=== PATIENT | male | born 1945 | race Caucasian/White ===

== ENCOUNTER 2020-10-04 10:29 | Inpatient (IN) | payer MEDICARE, SELFPAY ==
[2020-10-04] VITALS (12 sets, daily range): BP systolic 105–149; BP diastolic 39–117; PULSE 96–123; RESP 18–28; TEMP 36.6–37.9; O2SAT 89–99; BMI 32.1
--- NOTE | 2020-10-04 10:52 | ECG_ITS ---
Test Reason : WEAKNESS Blood Pressure : / mmHG Vent. Rate : 105 BPM Atrial Rate : 156 BPM P-R Int : 000 ms QRS Dur : 106 ms QT Int : 354 ms P-R-T Axes : 000 008 022 degrees QTc Int : 467 ms Atrial fibrillation with rapid ventricular response with premature ventricular or aberrantly conducted complexes Incomplete right bundle branch block Abnormal ECG No previous ECGs available Referred By: Poppy Adamson Electronically Signed By:JUAN CARLOS GARCIA MD
--- NOTE | 2020-10-04 10:52 | XR_ITS ---
EXAMINATION: XR CHEST CLINICAL INFORMATION: Weakness and shortness of breath. Evaluate for pneumonia. COMPARISON: None TECHNIQUE: Frontal view of the chest was obtained. FINDINGS: The cardiac and mediastinal contours are normal. The lung volumes are low. There is elevation of the right hemidiaphragm. There is airspace disease seen at the right lung base suggestive of pneumonia. The lungs are otherwise clear. There is no pleural effusion or pneumothorax. There are multiple old right-sided rib fractures. XR/XR chest 1V IMPRESSION: Low lung volumes and elevated right hemidiaphragm. Airspace disease at the right lung base suggestive of pneumonia.
--- NOTE | 2020-10-04 10:55 | ED_ITS ---
HPI - URI/Sore Throat General Chief Complaint: Dyspnea Stated Complaint: covid + Time Seen by Provider: 10/04/20 10:29 Source: patient Mode of arrival: ambulatory Limitations: no limitations History of Present Illness HPI Narrative: 75-year-old male with a past medical history of AFib on anticoagulation, high cholesterol here with shortness of breath and cough. The patient tells me that he has been sick with a cough for 1 month. He has had multiple exposures to COVID at work. He was tested this morning and was positive. He tells me he has had some shortness of breath over the last 24 hours which is worsened with exertion. No chest pain, leg swelling or pain. Tactile temps at home. MD elicited complaint: fever and cough Onset (ago): week(s) Consistency: intermittent Severity: mild Able to tolerate fluids by mouth: Yes Exacerbating factors: nothing Relieving factors: nothing Context: sick contacts Associated symptoms: fever, cough and shortness of breath Treatments prior to arrival: none Related Data Home Medications Medication Instructions Recorded Confirmed apixaban [Eliquis] 1 tab PO BID 10/04/20 10/04/20 metoprolol succinate 1 tab PO BEDTIME 10/04/20 10/04/20 simvastatin 1 tab PO DAILY 10/04/20 10/04/20 Allergies Allergy/AdvReac Type Severity Reaction Status Date / Time No Known Allergies Allergy Verified 10/04/20 11:40 Review of Systems Review of Systems: Yes all other systems are reviewed and are negative Constitutional: Constitutional: Reports no additional constitutional complaints, Denies body ache(s), Denies chills, Reports fever(s), Denies headache(s) and Denies weakness Eyes: Eyes: Reports no additional eye complaints and Denies change in vision ENT: Reports system reviewed and no additional complaints, except as documented, Denies dizziness, Denies headache(s), Denies nasal congestion, Denies nasal discharge and Denies neck pain Cardiovascular: Cardiovascular: Reports no additional cardiovascular complaints, Denies chest pain, Denies leg edema and Reports dyspnea Respiratory: Respiratory: Reports no additional respiratory complaints, Reports cough and Reports dyspnea Gastrointestinal: Gastrointestinal: Reports no additional gastrointestinal complaints, Denies abdominal pain, Denies diarrhea, Denies nausea and Denies vomiting Genitourinary: Genitourinary: Denies urinary incontinence Musculoskeletal: Musculoskeletal: Reports no additional musculoskeletal complaints, Denies back pain, Denies arthralgias, Denies joint swelling, Denies neck pain, Denies numbness and Denies tingling Integumentary/Breasts: Skin/Breast: Reports system reviewed and no additional complaints, except as docu and Denies rash Neurologic: Reports system reviewed and no additional complaints, except as documented, Denies Abnormal speech present, Denies dizziness, Denies headache (s), Denies numbness, Denies tingling and Denies weakness PMF Past Medical History Attestation statement: The following information was validated with the patient. Source: old records reviewed and nursing notes reviewed Medical History Afib Elevated cholesterol Social History Social History Advance Directives: No Advance Directives Information Provided: No Physical Exam Vital Signs: Vital Signs: Last Vital Signs Temp 100.0 F 10/04/20 14:01 Pulse 123 H 10/04/20 14:01 Resp 28 H 10/04/20 14:01 BP 123/64 10/04/20 14:01 Pulse Ox 92 10/04/20 14:01 Body Mass Index 32.1 Const: General: cooperative, healthy appearing, comfortable and no acute dis tress Orientation/consciousness: patient oriented x3 Limitations: no limitations HENMT: Head: Yes normal to inspection Ears: hearing grossly normal bilaterally General nose exam: Normal external nose present Face and sinus: Yes normal facial exam Mouth: Normal oral and palatal mucosa present Throat: Yes posterior oropharynx normal Eyes: General: appearance normal, both eyes and all related structures Pupils: Equal, round and reactive pupils present Neck: Neck: Yes normal visual inspection Chest: Chest palpation & inspection: normal inspection of the chest Resp: Effort & Inspection: normal respiratory effort Auscultation: clear to auscultation bilaterally Cardio: Rate: regular rate Rhythm: regular rhythm Peripheral pulses: Peripheral pulses 2+ throughout GI: Inspection: Yes normal to inspection Palpation (GI): Soft to palpation and nontender Auscultation: normal bowel sounds Back/Spine/Pelvis: Thoracic/Lumbar Spine: thoracic and lumbar spine normal to inspection Skin: General skin exam: no rashes or lesions noted Neuro: General: patient oriented x3, no focal motor deficits and normal sensation to monofilament Cranial nerves: Yes Equal, round and reactive pupils present Cognition (Neuro): normal cognition Speech: No Abnormal speech present Gait exam (Neuro): Normal gait present Motor exam (neuro): 5/5 motor strength present throughout Extrem: General: Yes normal to inspection Course Course Course Narrative: 75-year-old male who has known COVID positive here with cough and shortness of breath. On arrival the patient is well-appearing. Speaking full sentences in no apparent distress. Mild tachycardia noted. Low- grade temp on arrival with room air saturation 89%. Will check labs, chest x- ray, EKG 1150-Blood pressure 105/39. Pt is obese. Used IBW 81kg used. Total 2454ml. Chest x-ray shows a ? right lower lobe infiltrate @ 1140. At that time infection was suspected. Antibiotics ordered. 1405- Initial troponin indeterminate. Repeat is pending. EKG shows AFib with a rate of 105 with no ischemic changes. No chest pain. Likely demand ischemia from hypoxia at home. All other labs reviewed unremarkable. Discussed with hospitalist [place] who accepted admission. Requested d dimer and medicine will follow. 1545- D-dimer is elevated however less likely PE as patient is anticoagulated a nd has been compliant with his medication. No clinical signs or symptoms concerning for PE. Discussed with hospitalist and they will trend D-dimer. MDM - URI/Sore Throat Medical Records Attestation: I reviewed the patient's medical records. Lab Data Attestation: I reviewed the patient's lab results. Result diagrams: 10/04/20 11:34 10/04/20 12:44 Labs: Lab Results 10/04/20 10/04/20 10/04/20 Range/Units 11:34 11:34 11:34 WBC 9.8 (4.8-10.8) X10*3/uL RBC 4.95 (4.60-5.80) X10*6/uL Hgb 13.2 L (14.0-18.0) g/dl Hct 40.5 L (42-52) % MCV 81.8 (80-98) fL MCH 26.7 L (27.0-33.0) pg MCHC 32.6 (31.0-36.0) g/dl RDW 15.3 (11.0-16.0) % Plt Count 165 (160-400) X10*3/uL MPV Not Reportable Immature Gran % (Auto) 0.4 (0.0-0.4) % Neut % (Auto) 88.8 H (45-73) % Lymph % (Auto) 5.7 L (20-40) % [place] % (Auto) 4.9 (2-11) % Eos % (Auto) 0.0 (0-4) % Baso % (Auto) 0.2 (0-2) % Lymph # (Auto) 0.6 L (1.2-4.9) X10*3/uL [place] # (Auto) 0.5 (0.1-1.2) X10*3/uL Eos # (Auto) 0.0 (0.0-0.4) X10*3/uL Baso # (Auto) 0.0 (0.0-0.2) X10*3/uL Abs Immat Gran (auto) 0.04 H (0.00-0.03) X10*3/uL Absolute Neuts (auto) 8.7 H (2.0-8.3) X10*3/uL Absolute Nucleated RBC 0.000 (0.0-0.012) X10*3/uL Nucleated RBC % (auto) 0.0 (0.0-0.2) /100WBC Smear Tech's Comments VERIFIED PT Cancelled INR Cancelled D-Dimer NG/ML Sodium Cancelled Potassium Cancelled Chloride Cancelled Carbon Dioxide Cancelled Anion Gap Cancelled BUN Cancelled Creatinine Cancelled Estim Creat Clear Calc Cancelled Estimated GFR Cancelled Random Glucose Cancelled Lactic Acid (0.5-2.0) mmol/L Calcium Cancelled Magnesium Cancelled Ferritin Total Bilirubin Cancelled Direct Bilirubin Cancelled AST Cancelled ALT Cancelled Alkaline Phosphatase Cancelled Lactate Dehydrogenase Troponin I High Sens (<3.5-35.0) ng/L Total Protein Cancelled Albumin Cancelled Procalcitonin 10/04/20 10/04/20 10/04/20 Range/Units 11:34 11:34 11:34 WBC (4.8-10.8) X10*3/uL RBC (4.60-5.80) X10*6/uL Hgb (14.0-18.0) g/dl Hct (42-52) % MCV (80-98) fL MCH (27.0-33.0) pg MCHC (31.0-36.0) g/dl RDW (11.0-16.0) % Plt Count (160-400) X10*3/uL MPV Immature Gran % (Auto) (0.0-0.4) % Neut % (Auto) (45-73) % Lymph % (Auto) (20-40) % [place] % (Auto) (2-11) % Eos % (Auto) (0-4) % Baso % (Auto) (0-2) % Lymph # (Auto) (1.2-4.9) X10*3/uL [place] # (Auto) (0.1-1.2) X10*3/uL Eos # (Auto) (0.0-0.4) X10*3/uL Baso # (Auto) (0.0-0.2) X10*3/uL Abs Immat Gran (auto) (0.00-0.03) X10*3/uL Absolute Neuts (auto) (2.0-8.3) X10*3/uL Absolute Nucleated RBC (0.0-0.012) X10*3/uL Nucleated RBC % (auto) (0.0-0.2) /100WBC Smear Tech's Comments PT INR D-Dimer NG/ML Sodium Potassium Chloride Carbon Dioxide Anion Gap BUN Creatinine Estim Creat Clear Calc Estimated GFR Random Glucose Lactic Acid 1.5 (0.5-2.0) mmol/L Calcium Magnesium Ferritin Cancelled Total Bilirubin Direct Bilirubin AST ALT Alkaline Phosphatase Lactate Dehydrogenase Cancelled Troponin I High Sens 14.1 (<3.5-35.0) ng/L Total Protein Albumin Procalcitonin 10/04/20 10/04/20 10/04/20 Range/Units 11:34 12:44 12:44 WBC (4.8-10.8) X10*3/uL RBC (4.60-5.80) X10*6/uL Hgb (14.0-18.0) g/dl Hct (42-52) % MCV (80-98) fL MCH (27.0-33.0) pg MCHC (31.0-36.0) g/dl RDW (11.0-16.0) % Plt Count (160-400) X10*3/uL MPV Immature Gran % (Auto) (0.0-0.4) % Neut % (Auto) (45-73) % Lymph % (Auto) (20-40) % [place] % (Auto) (2-11) % Eos % (Auto) (0-4) % Baso % (Auto) (0-2) % Lymph # (Auto) (1.2-4.9) X10*3/uL [place] # (Auto) (0.1-1.2) X10*3/uL Eos # (Auto) (0.0-0.4) X10*3/uL Baso # (Auto) (0.0-0.2) X10*3/uL Abs Immat Gran (auto) (0.00-0.03) X10*3/uL Absolute Neuts (auto) (2.0-8.3) X10*3/uL Absolute Nucleated RBC (0.0-0.012) X10*3/uL Nucleated RBC % (auto) (0.0-0.2) /100WBC Smear Tech's Comments PT 20.7 H INR 1.7 H D-Dimer 780 NG/ML Sodium 131 L Potassium 3.5 Chloride 97 Carbon Dioxide 25 Anion Gap 13 BUN 15 Creatinine 0.76 Estim Creat Clear Calc 112.4 Estimated GFR > 60 Random Glucose 123 H Lactic Acid (0.5-2.0) mmol/L Calcium 7.7 L Magnesium 2.1 Ferritin 764 H Total Bilirubin 0.8 Direct Bilirubin 0.5 AST 60 H ALT 48 H Alkaline Phosphatase 48 Lactate Dehydrogenase 417 H Troponin I High Sens (<3.5-35.0) ng/L Total Protein 6.2 L Albumin 3.3 L Procalcitonin Cancelled 10/04/20 Range/Units 12:44 WBC (4.8-10.8) X10*3/uL RBC (4.60-5.80) X10*6/uL Hgb (14.0-18.0) g/dl Hct (42-52) % MCV (80-98) fL MCH (27.0-33.0) pg MCHC (31.0-36.0) g/dl RDW (11.0-16.0) % Plt Count (160-400) X10*3/uL MPV Immature Gran % (Auto) (0.0-0.4) % Neut % (Auto) (45-73) % Lymph % (Auto) (20-40) % [place] % (Auto) (2-11) % Eos % (Auto) (0-4) % Baso % (Auto) (0-2) % Lymph # (Auto) (1.2-4.9) X10*3/uL [place] # (Auto) (0.1-1.2) X10*3/uL Eos # (Auto) (0.0-0.4) X10*3/uL Baso # (Auto) (0.0-0.2) X10*3/uL Abs Immat Gran (auto) (0.00-0.03) X10*3/uL Absolute Neuts (auto) (2.0-8.3) X10*3/uL Absolute Nucleated RBC (0.0-0.012) X10*3/uL Nucleated RBC % (auto) (0.0-0.2) /100WBC Smear Tech's Comments PT INR D-Dimer NG/ML Sodium Potassium Chloride Carbon Dioxide Anion Gap BUN Creatinine Estim Creat Clear Calc Estimated GFR Random Glucose Lactic Acid (0.5-2.0) mmol/L Calcium Magnesium Ferritin Total Bilirubin Direct Bilirubin AST ALT Alkaline Phosphatase Lactate Dehydrogenase Troponin I High Sens (<3.5-35.0) ng/L Total Protein Albumin Procalcitonin 0.31 Imaging Data Chest x-ray: Attestation: I personally reviewed and interpreted this imaging study as follows: Radiologist's impression: EXAMINATION: XR CHEST CLINICAL INFORMATION: Weakness and shortness of breath. Evaluate for pneumonia. COMPARISON: None TECHNIQUE: Frontal view of the chest was obtained. FINDINGS: The cardiac and mediastinal contours are normal. The lung volumes are low. There is elevation of the right hemidiaphragm. There is airspace disease seen at the right lung base suggestive of pneumonia. The lungs are otherwise clear. There is no pleural effusion or pneumothorax. There are multiple old right-sided rib fractures. XR/XR chest 1V IMPRESSION: Low lung volumes and elevated right hemidiaphragm. Airspace disease at the right lung base suggestive of pneumonia. ECG Data Attestation: I personally reviewed and interpreted this ECG as follows: ECG interpretation date: 10/04/20 ECG interpretation time: 12:27 Interpretation: AFib with RVR with rate 105, normal QRS, normal QT, normal ST segment Discharge Plan Discharge Clinical Impression: COVID-19, Pneumonia, Hypoxia Patient Disposition: Admitted As Inpatient Prescriptions: No Action simvastatin 20 mg tablet 1 tab PO DAILY RF: 0 metoprolol succinate 25 mg tablet extended release 24 hr 1 tab PO BEDTIME RF: 0 Eliquis 5 mg tablet 1 tab PO BID RF: 0
[2020-10-04] MEDS: Acetaminophen 325 MG TABLET 650 MG PO (11:28)
[2020-10-04 11:47] LABS: Basophils Percent Auto 0.2 % (0-2); Hematocrit 40.5 % (42-52); MANUAL DIFF FLAG SCAN; PLT CLUMP 1; Red Cell Distribution Width 15.3 % (11.0-16.0); SCAN SMEAR FLAG 1
[2020-10-04 11:49] LABS: Hemoglobin 13.2 g/dl (14.0-18.0); Imm Gran Abs Auto 0.04 X10*3/uL (0.00-0.03); Imm Gran Pct Auto 0.4 % (0.0-0.4); Lymphocytes Absolute Auto 0.6 X10*3/uL (1.2-4.9); Lymphocytes Percent Auto 5.7 % (20-40); Mean Corpuscular HGB Conc 32.6 g/dl (31.0-36.0); Mean Corpuscular Hemoglobin 26.7 pg (27.0-33.0); Mean Corpuscular Volume 81.8 fL (80-98); Monocytes Absolute Auto 0.5 X10*3/uL (0.1-1.2); Monocytes Percent Auto 4.9 % (2-11); Neutrophils Absolute Auto 8.7 X10*3/uL (2.0-8.3); Neutrophils Percent Auto 88.8 % (45-73); Red Blood Count 4.95 X10*6/uL (4.60-5.80); White Blood Count 9.8 X10*3/uL (4.8-10.8)
[2020-10-04] MEDS: cefTRIAXone sodium 1 GM in 0.9 % Sodium Chloride 50 ML IV (11:49)
[2020-10-04] MEDS: 0.9 % Sodium Chloride 1,000 ML 999 ML IV (11:51)
--- NOTE | 2020-10-04 11:51 | PC.NURSE ---
Multiple sticks for labs and IV. pt is tachipnic at rest in bed. spking full sentences and skin pwd. slight cough noted. non productive. is aware of plan of care including admission.
[2020-10-04 12:08] LABS: Lactic Acid 1.5 mmol/L (0.5-2.0)
[2020-10-04 12:15] LABS: Platelet Count 165 X10*3/uL (160-400)
[2020-10-04 12:16] LABS: SLIDE REVIEW VERIFIED
[2020-10-04 12:20] LABS: Troponin-I High Sensitivity 14.1 ng/L (<3.5-35.0)
--- NOTE | 2020-10-04 12:28 | PC.NURSE ---
REPOSITIONED PT WAS INCONTINENT OF URINE AND SMALL AMOUNT OF SOFT STOOL
[2020-10-04] MEDS: Azithromycin 500 MG in 0.9 % Sodium Chloride 250 ML 125 MG IV (12:37)
[2020-10-04 13:32] LABS: INTERNATIONAL NORM RATIO 1.7 (0.9-1.1); Prothrombin Time 20.7 SEC (10.8-13.0)
[2020-10-04 13:49] LABS: Alanine Aminotransferase 48 U/L (0-40); Albumin Level 3.3 g/dL (3.5-5.0); Alkaline Phosphatase 48 U/L (39-117); Anion Gap 13 (12-20); Aspartate Amino Transferase 60 U/L (5-37); Bilirubin Direct 0.5 mg/dL (0.0-0.5); Bilirubin Total 0.8 mg/dL (0.0-1.0); Blood Urea Nitrogen 15 mg/dL (9-16); Calcium 7.7 mg/dL (8.4-10.2); Carbon Dioxide 25 mmol/L (22-29); Chloride 97 mmol/L (96-108); Creatinine Clr Calc Pharmacy 112.4; Estimated Glomerular Filt Rate > 60; Glucose Random 123 mg/dL (60-115); Lactate Dehydrogenase 417 U/L (118-273); Magnesium 2.1 mg/dL (1.6-2.6); Potassium 3.5 mmol/l (3.3-5.1); Sodium 131 mmol/L (135-145); Total Protein 6.2 g/dL (6.5-8.0)
--- NOTE | 2020-10-04 13:55 | PC.NURSE ---
Pt was slightly diaphoretic but resolved. when pt moved iv was dislodged and moderate amount of meds lost into linnen. up marta br, slow d/t knee pain but no SOB. room air is 87 when back in bed. o2 replaced.
[2020-10-04 14:08] LABS: Procalcitonin 0.31 ng/mL
[2020-10-04 14:11] LABS: Ferritin 764 ng/mL (20-250)
[2020-10-04 14:36] LABS: D Dimer 780 NG/ML
--- NOTE | 2020-10-04 17:27 | PC.NURSE ---
PENDING REPORT TO FLOOR
--- NOTE | 2020-10-04 17:43 | PC.NURSE ---
report given at this time.
--- NOTE | 2020-10-04 17:54 | HP_ITS ---
DATE OF SERVICE: 10/04/2020 PRIMARY CARE PROVIDER: Not listed. CHIEF COMPLAINT: Shortness of breath. HISTORY OF PRESENT ILLNESS: A 75-year-old man presenting from home with increased shortness of breath and cough with green sputum. He reports that he has been feeling this way for over the last month. He did have exposure to COVID at work. He went to an urgent care clinic with his daughter and they both tested positive. He was told to come to the ER if his symptoms worsened. He reported fever, chills, shortness of breath. He denied chest pain, nausea, vomiting, or diarrhea. Upon initial evaluation in the ER, he had an oxygen saturation of 89% on room air. He did have a low-grade fever of 100.2, heart rate 123, respiratory rate 28. Ferritin 264, sodium 131, LDH 417, procalcitonin 0.31. Chest x-ray showed low lung volumes with elevated right hemidiaphragm, airspace disease at the right lung base suggestive of pneumonia. He was given a dose of ceftriaxone, azithromycin, and 1 L of IV fluid. He will be admitted for further management and treatment of COVID-19 pneumonia. PAST MEDICAL HISTORY: 1. Anticoagulation. 2. Hyperlipidemia. PAST SURGICAL HISTORY: None reported. FAMILY HISTORY: Denies any cardiac disease. SOCIAL HISTORY: Denies any alcohol, tobacco, illicit drug use. Lives with his daughter. Remains fairly active. LABORATORY DATA: WBC 9.8, hemoglobin 13.2, hematocrit 40.5, platelets 165. Sodium is 131, potassium is 3.5, chloride is 97, bicarbonate is 25, BUN is 15, creatinine 0.76, glucose 123, ferritin 764, AST 60, ALT is 48, LDH is 417. Procalcitonin 0.31. Troponin 14.1. REVIEW OF SYSTEMS: CONSTITUTIONAL: Reports fever and chills. RESPIRATORY: See HPI. CARDIOVASCULAR: Denies any chest pain, orthopnea, PND, or edema. GASTROINTESTINAL: Denies dysphagia, abdominal pain, nausea, vomiting, or diarrhea. GENITOURINARY: Denies any dysuria, frequency, or hematuria. MUSCULOSKELETAL: Denies joint pain or swelling. NEUROPSYCH: Denies any weakness or seizures. All other systems are reviewed and are negative. PHYSICAL EXAMINATION: CONSTITUTIONAL: Resting in bed. Appears in no acute distress. VITAL SIGNS: 123/64, 123, 28, 100.0, 92% on 2 L. SKIN: Intact without rash or open sores. HEENT: Head is normocephalic, atraumatic. Eyes, pupils are PERRLA. Sclerae anicteric. EOMs are intact and moist. NECK: Supple. No lymphadenopathy. No JVD noted. CHEST: Normal lung expansion. HEART: Irregularly irregular with rapid ventricular response. NEURO: The patient is alert and oriented x3. Cranial nerves II through XII grossly intact without focal deficits. ASSESSMENT AND PLAN: A 75-year-old man who is being admitted with COVID pneumonia. 1. COVID pneumonia. We will treat with Rocephin, azithromycin, Decadron, ID consult, isolation, continue supplemental oxygen as needed. 2. Atrial fibrillation with rapid ventricular response. Monitor on telemetry. Consider starting Cardizem drip if the patient's heart rate continues to be elevated, the patient anticoagulated on Eliquis. Continue metoprolol. 3. Acute hypoxic respiratory failure. Oxygen saturation 89% on room air. Secondary to COVID pneumonia. We will treat as above. Continue supplemental oxygen. 4. Deep vein thrombosis prophylaxis with Eliquis. 5. Case discussed with Dr. Hernandez. 6. Full code. STEPHANE Whitley MD JR/MODL / [id number] MTDD
--- NOTE | 2020-10-04 18:15 | PM.EVENT ---
Event Note Date of Service: 10/05/20 Event Note: This patient is seen and examined with APC. Patient came with shortness of breath found to have acute rest hypoxemic respiratory failure secondary to COVID. Lab imaging, EKG reviewed. Found to have mildly elevated LFTs and also found to have in AFib with RVR physical exam: Cvs: irregular rythem, [id number] , no murmur res: Breath sound diminished does bases, no rales or wheezing abd: no rebound or guarding ,nt, bs present. ext pulses present , no cyanosis neuro: axo3 , nonfocal. Physical exam and assessment and plan coordinated in APCs note, Agree with the plan in addition: We will add COVID labs for morning including ferritin, D-dimer, CRP Continue IV antibiotic, Pulmonary consult and ID evaluation for further need of question remdesivir.
[2020-10-04] MEDS: dexAMETHasone 6 MG TABLET PO (18:18)
[2020-10-04] MEDS: 0.9 % Sodium Chloride Flush 3 ML SYRINGE IVFLUSH (18:18)
[2020-10-04] MEDS: dilTIAZem HCL 125 MG in 0.9 % Sodium Chloride 100 ML IVCONT (19:27)
[2020-10-04] MEDS: Metoprolol Succinate ER 25 MG TAB.ER.24H PO (22:18)
[2020-10-04] MEDS: Apixaban 5 MG TABLET PO (22:19)
[2020-10-05] VITALS (11 sets, daily range): BP systolic 117–143; BP diastolic 59–95; PULSE 89–112; RESP 18–20; TEMP 36–36.7; O2SAT 90–96; BMI 32.1
--- NOTE | 2020-10-05 | XR_ITS ---
EXAMINATION: XR CHEST CLINICAL INFORMATION: Shortness of breath, airspace disease right base on prior study. COMPARISON: Chest radiographs 10/04/2020 TECHNIQUE: Portable upright AP view of the chest was obtained. FINDINGS: There are low lung volumes again noted. There are no patchy bilateral airspace opacities predominantly mid and lower zones with apical sparing. No gross effusion. Heart is within normal size. Visualized vascularity unremarkable. Bony structures are stable. Multiple old right rib fractures. XR/XR chest 1V IMPRESSION: Bilateral patchy airspace opacities representing change from prior study 10/04/2020. Findings may related to multifocal pneumonia in the appropriate clinical setting.
[2020-10-05] MEDS: 0.9 % Sodium Chloride Flush 3 ML SYRINGE IVFLUSH ×3 (00:55→23:22)
[2020-10-05 06:54] LABS: Basophils Percent Auto 0.1 % (0-2); Hematocrit 41.3 % (42-52); Hemoglobin 13.5 g/dl (14.0-18.0); Imm Gran Pct Auto 0.6 % (0.0-0.4); Lymphocytes Absolute Auto 0.4 X10*3/uL (1.2-4.9); Lymphocytes Percent Auto 2.6 % (20-40); MANUAL DIFF FLAG SCAN; Mean Corpuscular HGB Conc 32.7 g/dl (31.0-36.0); Mean Corpuscular Hemoglobin 27.1 pg (27.0-33.0); Mean Corpuscular Volume 82.8 fL (80-98); Mean Platelet Volume 10.5 fL (9.4-12.4); Monocytes Absolute Auto 0.4 X10*3/uL (0.1-1.2); Monocytes Percent Auto 2.4 % (2-11); Neutrophils Absolute Auto 15.8 X10*3/uL (2.0-8.3); Neutrophils Percent Auto 94.3 % (45-73); Platelet Count 222 X10*3/uL (160-400); Red Blood Count 4.99 X10*6/uL (4.60-5.80); Red Cell Distribution Width 15.3 % (11.0-16.0); SCAN SMEAR FLAG 1; White Blood Count 16.8 X10*3/uL (4.8-10.8)
[2020-10-05 07:27] LABS: Anion Gap 18 (12-20); Blood Urea Nitrogen 14 mg/dL (9-16); Calcium 8.3 mg/dL (8.4-10.2); Carbon Dioxide 24 mmol/L (22-29); Chloride 98 mmol/L (96-108); Creatinine Clr Calc Pharmacy 113.9; Estimated Glomerular Filt Rate > 60; Glucose Random 149 mg/dL (60-115); Potassium 3.7 mmol/l (3.3-5.1); Sodium 136 mmol/L (135-145)
[2020-10-05 08:09] LABS: SLIDE REVIEW VERIFIED
[2020-10-05] MEDS: Apixaban 5 MG TABLET PO ×2 (08:11→20:21)
[2020-10-05] MEDS: guaiFENesin 100 MG/5 ML LIQUID PO ×2 (08:11→18:31)
[2020-10-05] MEDS: dexAMETHasone 6 MG TABLET PO (08:11)
[2020-10-05] MEDS: Atorvastatin Calcium 10 MG TABLET PO (08:11)
--- NOTE | 2020-10-05 09:09 | MHC.CM.PN ---
pt lives c his and daughter in their home. he reports he is independent in his care. he works a job and drives a car. pt will have his daughter provide transportation at dc. he denies the need for vna at dc at this time. dc plan is home no svcs. cm to cont. to follow.
--- NOTE | 2020-10-05 09:49 | P.CDIC_ITS ---
CDI Concurrent Query Service Date: 10/05/20 Documentation Clarification: Please clarify if you are treating a proba ble/suspected/likely or confirmed: Sepsis due to Covid-19/pneumonia with acute respiratory failure w hypoxia Covid-19/pneumonia with acute hypoxic respiratory failure-yes Please specify if known Provider Response: Other Other Diagnosis: acute hypoxemic respiratory failure/covid PLEASE DO NOT DELETE/MODIFY EXISTING CONTENT Additional information is needed in order to code to the highest accuracy and appropriate Severity of Illness (SOI). Please clarify the information noted below in your progress notes and discharge summary. Risk Factors/Clinical Indicators/Treatments Shortness of breath, fever at home, chills, hypoxia w O2 sat 89% HR 123 RR 28 Temp 100.2. CXR airspace disease at right lung base suggestive of pneumonia. Rocephin, Azithromycin, Decradon, ID consult, isolation, oxygen as needed. Acute hypoxic respiratory failure secondary to Covid-19 pneumonia. CDS: Beth Cassidy CCS, CDIS Contact Number: [phone] Please Review the information above and exercise your independent professional judgment in responding to the query. If you concur, pleas document in the PROGRESS NOTES and DISCHARGE SUMMARY. If you do not agree with the query, please document in the query above. THIS QUERY IS PART OF THE PERMANENT MEDICAL RECORD
--- NOTE | 2020-10-05 09:55 | PC.NURSE ---
Pt O2 88% on 5L O2 via NC, O2 increased to 6L via NC and O2 sat at 90%.
--- NOTE | 2020-10-05 09:56 | PC.NURSE ---
Pt HR between 92-102 Apical on 12.5 mg Cardizem drip. MD aware and ordered this RN to decrease the rate from 12.5 mg to 7.5 mg . Pt BP 142/73 HR 103 . Will continue to monitor as adjust per MD orders. Pt asymptomatic .
[2020-10-05 11:04] LABS: Alanine Aminotransferase 58 U/L (0-40); Albumin Level 3.8 g/dL (3.5-5.0); Alkaline Phosphatase 61 U/L (39-117); Aspartate Amino Transferase 66 U/L (5-37); Bilirubin Direct 0.5 mg/dL (0.0-0.5); Bilirubin Total 0.8 mg/dL (0.0-1.0); Total Protein 7.1 g/dL (6.5-8.0)
--- NOTE | 2020-10-05 11:46 | PC.NURSE ---
1140 Cardizem drip titrated down from 7.5mg to 2.5mg . Pt HR ranging from 90-105. MD aware, will continue to monitor.
[2020-10-05] MEDS: dilTIAZem HCL 125 MG in 0.9 % Sodium Chloride 100 ML IVCONT (12:17)
[2020-10-05] MEDS: cefTRIAXone sodium 1 GM in 0.9 % Sodium Chloride 50 ML IV (12:29)
[2020-10-05 12:44] LABS: Pt Ventilation O2% 6 L
[2020-10-05 13:00] LABS: ABG PCO2 35 mmhg (32-45); PO2 ABG 58 mmhg (83-108); pH ABG 7.45 (7.35-7.45)
[2020-10-05 13:01] LABS: Base Excess ABG 0.2; HCO3 ABG 24 mmol/l (22-26); Oxygen Saturation ABG 91.6 %
[2020-10-05] MEDS: Azithromycin 500 MG in 0.9 % Sodium Chloride 250 ML 125 MG IV (13:41)
[2020-10-05 14:54] LABS: C Reactive Protein 27.42 mg/dL (< or = 0.50); Magnesium 2.4 mg/dL (1.6-2.6)
[2020-10-05 15:32] LABS: D Dimer 936 NG/ML
[2020-10-05 15:59] LABS: Ferritin 2700 ng/mL (20-250)
[2020-10-05 16:41] LABS: SARS COV2 IgG Positive (Negative)
[2020-10-05] MEDS: Metoprolol Succinate ER 25 MG TAB.ER.24H PO (20:20)
[2020-10-06] VITALS (7 sets, daily range): BP systolic 125–140; BP diastolic 61–74; PULSE 95–103; RESP 18–20; TEMP 36.1–36.8; O2SAT 90
[2020-10-06] MEDS: guaiFENesin 100 MG/5 ML LIQUID PO ×2 (05:12→20:30)
[2020-10-06 06:25] LABS: Hematocrit 38.4 % (42-52); Hemoglobin 12.5 g/dl (14.0-18.0); Mean Corpuscular HGB Conc 32.6 g/dl (31.0-36.0); Mean Corpuscular Hemoglobin 26.7 pg (27.0-33.0); Mean Corpuscular Volume 82.1 fL (80-98); Mean Platelet Volume 10.5 fL (9.4-12.4); Platelet Count 200 X10*3/uL (160-400); Red Blood Count 4.68 X10*6/uL (4.60-5.80); Red Cell Distribution Width 15.7 % (11.0-16.0); White Blood Count 14.7 X10*3/uL (4.8-10.8)
[2020-10-06] MEDS: dilTIAZem HCL 125 MG in 0.9 % Sodium Chloride 100 ML 12.5 MG IVCONT (06:42)
[2020-10-06 06:57] LABS: Anion Gap 13 (12-20); Blood Urea Nitrogen 17 mg/dL (9-16); C Reactive Protein 24.34 mg/dL (< or = 0.50); Calcium 8.4 mg/dL (8.4-10.2); Carbon Dioxide 27 mmol/L (22-29); Chloride 98 mmol/L (96-108); Creatinine Clr Calc Pharmacy 115.5; Estimated Glomerular Filt Rate > 60; Glucose Random 172 mg/dL (60-115); Potassium 3.7 mmol/l (3.3-5.1); Sodium 134 mmol/L (135-145)
[2020-10-06] MEDS: dexAMETHasone 6 MG TABLET PO (09:08)
[2020-10-06] MEDS: 0.9 % Sodium Chloride Flush 3 ML SYRINGE IVFLUSH ×2 (09:08→22:18)
[2020-10-06] MEDS: Apixaban 5 MG TABLET PO ×2 (09:08→20:23)
[2020-10-06] MEDS: Atorvastatin Calcium 10 MG TABLET PO (09:08)
[2020-10-06] MEDS: Doxycycline Hyclate 100 MG in 0.9 % Sodium Chloride 250 ML 166.67 MG IV (10:49)
[2020-10-06] MEDS: cefTRIAXone sodium 1 GM in 0.9 % Sodium Chloride 50 ML IV (12:38)
--- NOTE | 2020-10-06 16:44 | PC.NURSE ---
Pt was on cardizem gtt. HR 100-110's at beginning of shift. Hr now in the 90's occasionally into low 100's. Cardizem gtt stopped per MD order, continue home lopressor dose. Pt has no c/o chest pain or palpitations. Pt complaind of some SOB, rr 20, O2 90% on5L, and course crackles bilateral bases. MD aware, will continue to monitor
--- NOTE | 2020-10-06 16:47 | HO.PM.IMPN ---
Subjective Subjective Date of Service: 10/07/20 Interval History: Acute hypoxemic respiratory failure probably secondary to pneumonia/COPD Review of Systems Patient is shortness breath still intermittently denies any chest pain or abdominal pain Has cough or sputum. Physical Exam Vital Signs: Vital Signs: Last Vital Signs Temp 97 F 10/06/20 16:00 Pulse 98 10/06/20 16:00 Resp 20 10/06/20 16:00 BP 125/68 10/06/20 16:00 Pulse Ox 90 L 10/06/20 16:00 Body Mass Index 32.1 Physical exam: Cvs: rrr, [id number] , no murmur res: Diminished breath sounds, still has wheezing abd: no rebound or guarding ,nt, bs present. ext pulses present , no cyanosis neuro: axo3 , nonfocal. Objective Data Current Medications Generic Name Dose Route Start Last Admin Trade Name Freq PRN Reason Stop Dose Admin Acetaminophen 650 mg 10/04/20 18:07 Acetaminophen 325 Mg Tablet PO Q6H PRN Pain, Mild (Pain Scale 1-3) Apixaban 5 mg 10/04/20 21:00 10/06/20 09:08 Apixaban 5 Mg Tablet PO 5 mg BID NICOLE Administration Atorvastatin Calcium 10 mg 10/05/20 09:00 10/06/20 09:08 Atorvastatin Calcium 10 Mg Tablet PO 10 mg DAILY NICOLE Administration Dexamethasone 6 mg 10/04/20 18:07 10/06/20 09:08 Dexamethasone 6 Mg Tablet PO 6 mg DAILY NICOLE Administration Guaifenesin 5 ml 10/05/20 18:16 10/06/20 05:12 Guaifenesin 100 Mg/5 Ml Liquid PO 5 ml Q6H PRN Administration Cough Ceftriaxone Sodium 1 gm/ 50 mls @ 100 mls/hr 10/05/20 11:00 10/06/20 13:08 Sodium Chloride IV Infused Q24H NICOLE Infusion Diltiazem HCl 125 mg/ Sodium 125 mls @ 0 mls/hr 10/04/20 18:30 10/06/20 16:11 Chloride IVCONT Infused .Q0M NICOLE Titration Protocol Per Protocol Doxycycline Hyclate 100 mg/ 250 mls @ 166.67 mls/hr 10/06/20 10:30 10/06/20 12:19 Sodium Chloride IV Infused Q12H NICOLE Infusion Metoprolol Succinate 25 mg 10/04/20 21:00 10/05/20 20:20 Metoprolol Succinate Er 25 Mg Tab.Er.24h PO 25 mg BEDTIME [facility] Administration Protocol Ondansetron HCl 4 mg 10/04/20 18:07 Ondansetron Hcl 4 Mg/2 Ml Vial IVPUSH Q8H PRN Nausea and Vomiting Pharmacy Consult 1 each 10/04/20 12:08 Consult Rx Perform Med Rec MISCELLANE ONCE PRN Consult order Sodium Chloride 3 ml 10/04/20 18:07 10/06/20 15:03 0.9 % Sodium Chloride Flush 3 Ml Syringe IVFLUSH Not Given QSHIFT [facility] Labs CBC & Chem 7: 10/07/20 05:31 10/07/20 05:31 Microbiology Microbiology Results: Microbiology 10/04/20 11:34 Blood - Venous Blood Culture - Preliminary No growth after 48 hours. 10/04/20 11:34 Blood - Venous Blood Culture - Preliminary No growth after 48 hours. Assessment and Plan (1) COVID-19: Status: Acute (2) Pneumonia: Status: Acute (3) Hypoxia: Status: Acute Assessment and Plan: 75-year-old man who is being admitted with COVID pneumonia. 1. COVID pneumonia. treat with Rocephin, azithromycin, Decadron, ID consult, isolation, continue supplemental oxygen as needed. 2. Atrial fibrillation with rapid ventricular response. hr rate improving Consider starting Cardizem drip . elevated, the patient anticoagulated on Eliquis. Continue metoprolol. 3. Acute hypoxic respiratory failure. Oxygen saturation 89% on room air. Secondary to COVID pneumonia. We will treat as above. Continue supplemental oxygen.
[2020-10-06] MEDS: dilTIAZem HCL 125 MG in 0.9 % Sodium Chloride 100 ML 10 MG IVCONT (16:57)
--- NOTE | 2020-10-06 17:21 | PC.NURSE ---
Pt was on cardizem gtt. HR 100-110's at beginning of shift. Hr now in the 90's occasionally into low 100's. Cardizem gtt tapered down per MD order, continue home lopressor dose. Pt has no c/o chest pain or palpitations. Pt complaind of some SOB, rr 20, O2 90% on5L, and course crackles bilateral bases. MD aware, inhaler ordered. will continue to monitor
--- NOTE | 2020-10-06 17:52 | PM.CNPUL ---
History of Present Illness History of Present Illness Consult date: 10/06/20 Chief complaint: covid + PNA Narrative: A 75-year-old man presenting from home with increased shortness of breath andcough with green sputum. He reports that he has been feeling this way for over the last month. He did have exposure to COVID at work. He went to an urgentcare clinic with his daughter and they both tested positive. He was told to come to the ER if his symptoms worsened. He reported fever, chills, shortnes of breath. He denied chest pain, nausea, vomiting, or diarrhea. Upon initial evaluation in the ER, he had an oxygen saturation of 89% on room air. He did have a low-grade fever of 100.2, heart rate 123, respiratory rate 28. Ferritin 264, sodium 131, LDH 417, procalcitonin 0.31. Chest x-ray showed low lung volumes with elevated right hemidiaphragm, airspace disease at the right lung base suggestive of pneumonia. He was given a dose of ceftriaxone, azithromycin, and 1 L of IV fluid. He will be admitted for further management and treatment of COVID-19 pneumonia. Due to the fact that the patient has had symptoms for a prolonged period of time we did request a COVID-19 IgG level that was indeed positive. In the hospital he was found to be in AFib with rapid ventricular response and placed on a Cardizem drip. Review of Systems Constitutional: Constitutional: Denies headache(s) and Denies weakness ENT: Denies dizziness and Denies headache(s) Cardiovascular: Cardiovascular: Denies chest pain, Reports palpitations and Reports dyspnea Respiratory: Respiratory: Reports cough and Reports dyspnea Musculoskeletal: Musculoskeletal: Denies numbness and Denies tingling Neurologic: Reports system reviewed and no additional complaints, except as documented, Denies Abnormal speech present, Denies dizziness, Denies headache(s), Denies numbness, Denies tingling and Denies weakness Endocrine: Endocrine: Reports palpitations PMFSH Past Medical History Medical History (Updated 10/06/20 @ 17:55 by Ritchie Lucio MD) Afib Elevated cholesterol Surgical History Surgical History (Updated 10/04/20 @ 18:32 by Olya Mendoza RN) History of total knee replacement Social History Social History Household Members: Children Housing: House Do you presently have visiting nurse or other home services: No Smoking Status: Never smoker Smoked in Last 30 Days: No Use of substances other than those prescribed or required for medical reasons: No Currently Displaying Signs/Symptoms of Drug Intoxication Withdrawal: No Have you been hit, kicked, punched, or otherwise hurt by someone within the past year? If so, by whom?: No Do you feel safe in your current relationship?: Yes Is there a partner from a previous relationship who is making you feel unsafe now?: No Are you made to feel afraid or neglected: No Advance Directives: No Advance Directives Information Provided: No Do you have thoughts of harming others: None Do you have a plan to hurt others: No Plan Recently lost weight without trying: No service: No Current occupational status: employed Meds Allergies Allergy/AdvReac Type Severity Reaction Status Date / Time No Known Allergies Allergy Verified 10/04/20 11:40 Home Medications Medication Instructions Recorded Confirmed Type apixaban [Eliquis] 1 tab PO BID 10/04/20 10/04/20 History metoprolol succinate 1 tab PO BEDTIME 10/04/20 10/04/20 History simvastatin 1 tab PO DAILY 10/04/20 10/04/20 History Physical Exam Vital Signs: Vital Signs: Last Vital Signs Temp 97 F 10/06/20 16:00 Pulse 95 10/06/20 16:57 Resp 20 10/06/20 16:00 BP 125/68 10/06/20 16:57 Pulse Ox 90 L 10/06/20 16:00 Body Mass Index 32.1 Const: General: alert HENMT: General nose exam: Abnormal external nose present and Nasal discharge present Eyes: Pupils: Equal, round and reactive pupils present Neck: Neck: Yes normal visual inspection, Yes full ROM and Yes no lymphadenopathy Chest: Chest palpation & inspection: normal inspection of the chest Resp: Auscultation: diminished lung sounds Cardio: Rate: regular rate Rhythm: abnormal rhythm Heart sounds: S1 normal heart sound present and S2 normal heart sound present GI: Palpation (GI): Soft to palpation and nontender Auscultation: normal bowel sounds : General: Yes no CVA tenderness Back/Spine/Pelvis: Back: no CVA tenderness Skin: General skin exam: rashes and/or lesions noted Neuro: Cranial nerves: Yes Equal, round and reactive pupils present Speech: No Abnormal speech present Results Laboratory Findings CBC and BMP: 10/06/20 05:56 10/06/20 05:56 ABG, PT/INR, D-dimer: ABG ABG pH 7.45 (7.35-7.45) 10/05/20 12:25 ABG pCO2 35 mmhg (32-45) 10/05/20 12:25 ABG pO2 58 mmhg (83-108) L 10/05/20 12:25 ABG O2 Saturation 91.6 % 10/05/20 12:25 PT/INR, D-dimer PT 20.7 SEC (10.8-13.0) H 10/04/20 12:44 INR 1.7 (0.9-1.1) H 10/04/20 12:44 D-Dimer 936 NG/ML 10/05/20 15:08 Abnormal lab findings: Abnormal Labs 10/04/20 10/04/20 10/04/20 11:34 12:44 12:44 WBC Hgb 13.2 L Hct 40.5 L MCH 26.7 L Immature Gran % (Auto) Neut % (Auto) 88.8 H Lymph % (Auto) 5.7 L Lymph # (Auto) 0.6 L Abs Immat Gran (auto) 0.04 H Absolute Neuts (auto) 8.7 H PT 20.7 H INR 1.7 H ABG pO2 Sodium 131 L BUN Random Glucose 123 H Calcium 7.7 L Ferritin 764 H AST 60 H ALT 48 H Lactate Dehydrogenase 417 H C-Reactive Protein Total Protein 6.2 L Albumin 3.3 L 10/05/20 10/05/20 10/05/20 05:47 05:47 12:25 WBC 16.8 H Hgb 13.5 L Hct 41.3 L MCH Immature Gran % (Auto) 0.6 H Neut % (Auto) 94.3 H Lymph % (Auto) 2.6 L Lymph # (Auto) 0.4 L Abs Immat Gran (auto) 0.10 H Absolute Neuts (auto) 15.8 H PT INR ABG pO2 58 L Sodium BUN Random Glucose 149 H Calcium 8.3 L D Ferritin 2700 H AST 66 H ALT 58 H Lactate Dehydrogenase C-Reactive Protein 27.42 H Total Protein Albumin 10/06/20 10/06/20 05:56 05:56 WBC 14.7 H Hgb 12.5 L Hct 38.4 L MCH 26.7 L Immature Gran % (Auto) Neut % (Auto) Lymph % (Auto) Lymph # (Auto) Abs Immat Gran (auto) Absolute Neuts (auto) PT INR ABG pO2 Sodium 134 L BUN 17 H Random Glucose 172 H Calcium Ferritin AST ALT Lactate Dehydrogenase C-Reactive Protein 24.34 H Total Protein Albumin Microbiology: Microbiology 10/04/20 11:34 Blood - Venous Blood Culture - Preliminary No growth after 48 hours. 10/04/20 11:34 Blood - Venous Blood Culture - Preliminary No growth after 48 hours. Assessment and Plan (1) COVID-19: Status: Acute Already producing IgG titers against COVID-19. Recommendations: -no need for convalescent plasma or Rendesivir this time (2) Pneumonia: Qualifiers: Pneumonia type: due to unspecified organism Laterality: unspecified laterality Lung location: unspecified part of lung Qualified Code(s): J18.9 - Pneumonia, unspecified organism Status: Acute Likely postviral bacterial infection concerning for both Streptococcus and Staph aureus. Recommend: -continue ceftriaxone -switch from azithromycin to doxycycline -monitor his white count inflammatory markers (3) Hypoxia: Status: Acute Continue with oxygen supplementation Will repeat chest x-ray tomorrow
[2020-10-06] MEDS: Metoprolol Succinate ER 25 MG TAB.ER.24H PO (20:23)
[2020-10-07] VITALS (10 sets, daily range): BP systolic 134–145; BP diastolic 65–78; PULSE 88–113; RESP 18–20; TEMP 36.3–37.3; O2SAT 91–94
[2020-10-07] MEDS: guaiFENesin 100 MG/5 ML LIQUID PO ×2 (01:39→09:21)
[2020-10-07] MEDS: dilTIAZem HCL 125 MG in 0.9 % Sodium Chloride 100 ML IVCONT (05:08)
[2020-10-07 06:40] LABS: Anion Gap 15 (12-20); Blood Urea Nitrogen 21 mg/dL (9-16); Calcium 8.4 mg/dL (8.4-10.2); Carbon Dioxide 25 mmol/L (22-29); Chloride 100 mmol/L (96-108); Creatinine Clr Calc Pharmacy 120.3; Estimated Glomerular Filt Rate > 60; Glucose Random 173 mg/dL (60-115); Sodium 136 mmol/L (135-145)
[2020-10-07 06:47] LABS: Hematocrit 42.5 % (42-52); Hemoglobin 13.9 g/dl (14.0-18.0); Mean Corpuscular HGB Conc 32.7 g/dl (31.0-36.0); Mean Corpuscular Hemoglobin 26.9 pg (27.0-33.0); Mean Corpuscular Volume 82.2 fL (80-98); Mean Platelet Volume 11.3 fL (9.4-12.4); Platelet Count 270 X10*3/uL (160-400); Red Blood Count 5.17 X10*6/uL (4.60-5.80); Red Cell Distribution Width 15.6 % (11.0-16.0); White Blood Count 11.1 X10*3/uL (4.8-10.8)
[2020-10-07] MEDS: levalbuterol HCL 1.25 MG/3 ML VIAL.NEB INHALE ×2 (07:47→13:21)
--- NOTE | 2020-10-07 07:58 | XR_ITS ---
EXAMINATION: XR CHEST CLINICAL INFORMATION: Pneumonia COMPARISON: Chest radiographs 10/05/2020, 10/04/2020 TECHNIQUE: 2 views of the chest were obtained. FINDINGS: The patchy bilateral airspace opacities are slightly more confluent/increased. The overall distribution is similar to prior exam 10/05/2020. No interval effusion. The heart is normal in size. The vascularity is normal. XR/XR chest 2V IMPRESSION: Bilateral patchy airspace opacities slightly more confluent/increased from prior study 10/05/2020. No effusion.
[2020-10-07 08:51] LABS: C Reactive Protein 13.18 mg/dL (< or = 0.50)
[2020-10-07 09:14] LABS: B Type Natriuretic Peptide 45 pg/mL (<100)
[2020-10-07] MEDS: 0.9 % Sodium Chloride Flush 3 ML SYRINGE IVFLUSH ×3 (09:21→20:47)
[2020-10-07] MEDS: Doxycycline Hyclate 100 MG in 0.9 % Sodium Chloride 250 ML 166.67 MG IV ×2 (09:21→20:43)
[2020-10-07] MEDS: Atorvastatin Calcium 10 MG TABLET PO (09:21)
[2020-10-07] MEDS: Metoprolol Tartrate 25 MG TABLET PO ×3 (09:21→20:47)
[2020-10-07] MEDS: dexAMETHasone 6 MG TABLET PO (09:22)
[2020-10-07] MEDS: Apixaban 5 MG TABLET PO ×2 (09:22→20:47)
--- NOTE | 2020-10-07 10:09 | MHC.CM.PN ---
CM has mailed a copy of Patient's Medicare Rights (IMM) to his , via certified mail; Patient is on the Covid Unit.
--- NOTE | 2020-10-07 10:16 | PM.PNPUL ---
Subjective Subjective Date of Service: 10/07/20 Interval history: The patient was seen on exam. Feels more short of breath this morning. Chest x-ray about the same. Appears to be more edematous. Still in AFib with diverticular response Objective Data Labs CBC & Chem 7: 10/07/20 05:31 10/07/20 05:31 Labs: Laboratory Results - last 24 hr 10/07/20 10/07/20 10/07/20 05:31 05:31 05:31 WBC 11.1 H RBC 5.17 Hgb 13.9 L Hct 42.5 MCV 82.2 MCH 26.9 L MCHC 32.7 RDW 15.6 Plt Count 270 D MPV 11.3 Absolute Nucleated RBC 0.000 Nucleated RBC % (auto) 0.0 Sodium 136 Potassium 4.0 Chloride 100 Carbon Dioxide 25 Anion Gap 15 BUN 21 H Creatinine 0.71 Estim Creat Clear Calc 120.3 Estimated GFR > 60 Random Glucose 173 H Calcium 8.4 C-Reactive Protein 13.18 H B-Natriuretic Peptide 45 Microbiology Microbiology Results: Microbiology 10/04/20 11:34 Blood - Venous Blood Culture - Preliminary No growth after 48 hours. 10/04/20 11:34 Blood - Venous Blood Culture - Preliminary No growth after 48 hours. Review of Systems Constitutional: Denies headache(s) and Denies weakness Denies dizziness and Denies headache(s) Musculoskeletal: Denies numbness and Denies tingling Reports system reviewed and no additional complaints, except as documented, Denies Abnormal speech present, Denies dizziness, Denies headache(s), Denies numbness, Denies tingling and Denies weakness Physical Exam Vital Signs: Vital Signs: Last Vital Signs Temp 99.1 F 10/07/20 03:26 Pulse 113 H 10/07/20 09:21 Resp 20 10/07/20 03:26 BP 145/78 H 10/07/20 09:21 Pulse Ox 91 L 10/07/20 03:26 Body Mass Index 32.1 Const: General: alert HENMT: General nose exam: Abnormal external nose present and Nasal discharge present Eyes: Pupils: Equal, round and reactive pupils present Neck: Neck: Yes normal visual inspection, Yes full ROM and Yes no lymphadenopathy Chest: Chest palpation & inspection: normal inspection of the chest Resp: Auscultation: diminished lung sounds Cardio: Rate: regular rate Rhythm: regular rhythm Heart sounds: S1 normal heart sound present and S2 normal heart sound present GI: Palpation (GI): Soft to palpation and nontender Auscultation: normal bowel sounds : General: Yes no CVA tenderness Back/Spine/Pelvis: Back: no CVA tenderness Skin: General skin exam: rashes and/or lesions noted Neuro: Cranial nerves: Yes Equal, round and reactive pupils present Speech: No Abnormal speech present Extrem: General: Yes edema Assessment and Plan Assessment and plan (1) COVID-19: Problem details: Appears to have antibodies from past exposure to COVID-19 now with significant issues due to the COVID-19 infection Status: Acute Assessment and Plan: No need for antiviral therapy at this time (2) Pneumonia: Problem details: Likely postviral bacterial process in addition to some degree of pneumonitis due to the COVID infection. Status: Acute Assessment and Plan: Continue antibiotics Continue steroids Additional diuretics at this time because he has more edematous likely affecting his respiratory status. (3) Hypoxia: Status: Acute (4) Afib: Status: Acute Time Spent With Patient Time: Total time spent is greater than 50% in coordination of care (as documented) at patient's floor/unit and/or counseling patient: Time with patient: 25 - 35 minutes
[2020-10-07] MEDS: Furosemide 40 MG/4 ML VIAL IVPUSH (10:42)
--- NOTE | 2020-10-07 11:49 | MHC.CM.PN ---
Home is the goal for dc. Patient is still in Afib and receiving IV Diltiazem, and IV Ceftriaxone and IV Doxycycline for PNA. CM will continue to follow for dc planning and the possible need to adjust the dc plan.
[2020-10-07] MEDS: cefTRIAXone sodium 1 GM in 0.9 % Sodium Chloride 50 ML IV (13:06)
--- NOTE | 2020-10-07 14:41 | P.PNIM_ITS ---
Subjective Subjective Date of Service: 10/07/20 Interval History: seen and examined unchanged still sob still coughing ROS General - no fevers or chills Cardiovascular - no chest pain Respiratory - +SOB/Cough Abdominal- no abdominal pain, nausea, vomiting, diarrhea Physical Exam Vital Signs: Vital Signs: Last Vital Signs Temp 97.3 F 10/07/20 12:00 Pulse 112 H 10/07/20 13:22 Resp 20 10/07/20 12:00 BP 143/65 H 10/07/20 12:00 Pulse Ox 92 10/07/20 12:00 Body Mass Index 32.1 Const: Other: General - no acute distress, appears comfortable Cardiovascular - regular rate and rhythm, S1-S2 Lungs - rhonchi/rales, dim sounds overall, no significant distress at rest Abdomen - soft, nontender, no rebound or guarding Extremities - +edema b/l LE Neuro - awake and alert, no focal deficits Objective Data Current Medications Generic Name Dose Route Start Last Admin Trade Name Freq PRN Reason Stop Dose Admin Acetaminophen 650 mg 10/04/20 18:07 Acetaminophen 325 Mg Tablet PO Q6H PRN Pain, Mild (Pain Scale 1-3) Apixaban 5 mg 10/04/20 21:00 10/07/20 09:22 Apixaban 5 Mg Tablet PO 5 mg BID NICOLE Administration Atorvastatin Calcium 10 mg 10/05/20 09:00 10/07/20 09:21 Atorvastatin Calcium 10 Mg Tablet PO 10 mg DAILY NICOLE Administration Dexamethasone 6 mg 10/04/20 18:07 10/07/20 09:22 Dexamethasone 6 Mg Tablet PO 6 mg DAILY NICOLE Administration Guaifenesin 5 ml 10/05/20 18:16 10/07/20 09:21 Guaifenesin 100 Mg/5 Ml Liquid PO 5 ml Q6H PRN Administration Cough Diltiazem HCl 125 mg/ Sodium 125 mls @ 0 mls/hr 10/04/20 18:30 10/07/20 13:16 Chloride IVCONT 0 mg/hr .Q0M NICOLE 0 mls/hr Titration Protocol Per Protocol Ceftriaxone Sodium 1 gm/ 50 mls @ 100 mls/hr 10/07/20 13:00 10/07/20 13:40 Sodium Chloride IV Infused Q24H NICOLE Infusion Doxycycline Hyclate 100 mg/ 250 mls @ 166.67 mls/hr 10/07/20 08:00 10/07/20 11:08 Sodium Chloride IV Infused Q12H NICOLE Infusion Levalbuterol HCl 1.25 mg 10/06/20 16:53 Levalbuterol Hcl 1.25 Mg/3 Ml Vial.Neb INHALE Q3H PRN Shortness of Breath Levalbuterol HCl 1.25 mg 10/06/20 20:00 10/07/20 13:21 Levalbuterol Hcl 1.25 Mg/3 Ml Vial.Neb INHALE 1.25 mg RTID NICOLE Administration Metoprolol Tartrate 25 mg 10/07/20 09:00 10/07/20 09:21 Metoprolol Tartrate 25 Mg Tablet PO 25 mg Q6H NICOLE Administration Protocol Ondansetron HCl 4 mg 10/04/20 18:07 Ondansetron Hcl 4 Mg/2 Ml Vial IVPUSH Q8H PRN Nausea and Vomiting Pharmacy Consult 1 each 10/04/20 12:08 Consult Rx Perform Med Rec MISCELLANE ONCE PRN Consult order Sodium Chloride 3 ml 10/04/20 18:07 10/07/20 09:21 0.9 % Sodium Chloride Flush 3 Ml Syringe IVFLUSH 3 ml QSHIFT NICOLE Administration Labs CBC & Chem 7: 10/07/20 05:31 10/07/20 05:31 Microbiology Microbiology Results: Microbiology 10/04/20 11:34 Blood - Venous Blood Culture - Preliminary No growth after 48 hours. 10/04/20 11:34 Blood - Venous Blood Culture - Preliminary No growth after 48 hours. Assessment and Plan (1) COVID-19: Status: Acute Assessment and Plan: This is a 75 yo M who is admitted for respitartory failure due to probable post- COVID bacterial pneumonia and a. fib with rvr 1. Acute Respiratory failure with hypoxia due to post viral bacterial pneumonia COVID 19 IgG positive continue o2 continue antibiotics day 3 continue decadron day 3 pulmonary input appreciated 2. A. Fib rvr on cardizem gtt -- increase metoprolol to 25mg q6 hours and discontinue drip if HR remains below 100 if difficult to control, will ask cardiology for input hold off on echo at this time, unlikely to change mgmt will give a dose of IV lasix continue eliquis Full Code DVT pptx, Eliquis offered to give updates to his daughter, declines at this time.
--- NOTE | 2020-10-07 18:18 | PC.NURSE ---
PATIENT CONTINUES TO BE IN AFIB HR FLUCTATING BETWEEN 90'S-120. STARTE DON LOPRESSORE 25 MG PO Q6H AND ONE DOSE OF IV LASIX 40 MG ORDERED AND GIVEN. TOELRTING WELL. CARDIZEM GTT PREVIOUSLY RUNNING AT 5 MG/HR STOPPED AT 1315. CLOSE MONITORING WITH IMPROVEMENT IN HR 90'-SLOW 100'S. HOSPITALIST UPDATED. ALAN DUVALL DC.
--- NOTE | 2020-10-07 21:49 | W.PM.IDCN ---
History of Present Illness Data of Consult Service Date: 10/07/20 Requesting physician: Dayday Gandhi Primary Care Provider: Unknown Physician HPI Reason for consult: COVID He presents to hospital with shortness of breath He has had symptoms for two weeks after exposure at work and daughter ill as well He has been on low level oxygen, about 2 l Review of Systems Constitutional: Constitutional: Denies headache(s) and Denies weakness ENT: Denies dizziness and Denies headache(s) Musculoskeletal: Musculoskeletal: Denies numbness and Denies tingling Neurologic: Reports system reviewed and no additional complaints, except as documented, Denies Abnormal speech present, Denies dizziness, Denies headache(s), Denies numbness, Denies tingling and Denies weakness PMFSH Past Medical History Medical History Afib Elevated cholesterol Surgical History Surgical History History of total knee replacement Social History Social History Household Members: Children Housing: House Smoking Status: Never smoker service: No Current occupational status: employed Meds Allergies Allergy/AdvReac Type Severity Reaction Status Date / Time No Known Allergies Allergy Verified 10/04/20 11:40 Home Medications Medication Instructions Recorded Confirmed Type Eliquis 1 tab PO BID 10/04/20 10/04/20 History simvastatin 1 tab PO DAILY 10/04/20 10/04/20 History Physical Exam Vital Signs: Vital Signs: Last Vital Signs Temp 97.6 F 10/07/20 20:00 Pulse 88 10/07/20 20:47 Resp 20 10/07/20 20:00 BP 145/69 H 10/07/20 20:47 Pulse Ox 91 L 10/07/20 20:00 Body Mass Index 32.1 Const: General: cooperative HENMT: Head: Yes normal to inspection Mouth: Normal oral and palatal mucosa present Eyes: General: appearance normal, both eyes and all related structures Cardio: Rate: regular rate Rhythm: regular rhythm GI: Palpation (GI): Soft to palpation and nontender : General: Yes no CVA tenderness Back/Spine/Pelvis: Back: no CVA tenderness Neuro: Speech: No Abnormal speech present Assessment and Plan (1) COVID-19: Status: Acute Would give Dexamethasone for 10 days Supportve care Results Labs CBC & Chem 7: 10/13/20 06:08 10/13/20 06:08 Labs: Short CBC 10/07/20 Range/Units 05:31 WBC 11.1 H (4.8-10.8) X10*3/uL Hgb 13.9 L (14.0-18.0) g/dl Hct 42.5 (42-52) % Plt Count 270 D (160-400) X10*3/uL BMP 10/07/20 05:31 Sodium 136 Potassium 4.0 Chloride 100 Carbon Dioxide 25 BUN 21 H Creatinine 0.71 Calcium 8.4 Microbiology Microbiology Results: Microbiology 10/04/20 11:34 Blood - Venous Blood Culture - Preliminary No growth after 48 hours. 10/04/20 11:34 Blood - Venous Blood Culture - Preliminary No growth after 48 hours.
[2020-10-07] MEDS: Acetaminophen 325 MG TABLET 650 MG PO (22:15)
[2020-10-08] VITALS (11 sets, daily range): BP systolic 126–147; BP diastolic 72–94; PULSE 63–120; RESP 18–24; TEMP 35.6–37; O2SAT 90–95
[2020-10-08] MEDS: Melatonin 3 MG TABLET 6 MG PO (00:28)
[2020-10-08] MEDS: Metoprolol Tartrate 25 MG TABLET PO ×2 (02:08→09:20)
[2020-10-08] MEDS: guaiFENesin 100 MG/5 ML LIQUID PO ×2 (05:20→12:36)
[2020-10-08] MEDS: Acetaminophen 325 MG TABLET 650 MG PO ×3 (06:04→19:24)
[2020-10-08] MEDS: Doxycycline Hyclate 100 MG in 0.9 % Sodium Chloride 250 ML 166.67 MG IV ×2 (09:17→19:15)
[2020-10-08] MEDS: dexAMETHasone 2 MG TABLET 8 MG PO (09:20)
[2020-10-08] MEDS: Atorvastatin Calcium 10 MG TABLET PO (09:20)
[2020-10-08] MEDS: Apixaban 5 MG TABLET PO ×2 (09:20→19:23)
[2020-10-08] MEDS: 0.9 % Sodium Chloride Flush 3 ML SYRINGE IVFLUSH ×3 (09:21→19:25)
[2020-10-08 10:55] LABS: Anion Gap 12 (12-20); Blood Urea Nitrogen 24 mg/dL (9-16); C Reactive Protein 5.26 mg/dL (< or = 0.50); Calcium 8.8 mg/dL (8.4-10.2); Carbon Dioxide 29 mmol/L (22-29); Chloride 101 mmol/L (96-108); Creatinine Clr Calc Pharmacy 118.7; Estimated Glomerular Filt Rate > 60; Glucose Random 170 mg/dL (60-115); Potassium 3.9 mmol/l (3.3-5.1); Sodium 138 mmol/L (135-145)
[2020-10-08 11:01] LABS: B Type Natriuretic Peptide 115 pg/mL (<100)
[2020-10-08 11:03] LABS: Hematocrit 42.8 % (42-52); Hemoglobin 14.1 g/dl (14.0-18.0); Mean Corpuscular HGB Conc 32.9 g/dl (31.0-36.0); Mean Corpuscular Hemoglobin 26.8 pg (27.0-33.0); Mean Corpuscular Volume 81.2 fL (80-98); Mean Platelet Volume 10.5 fL (9.4-12.4); Platelet Count 358 X10*3/uL (160-400); Red Blood Count 5.27 X10*6/uL (4.60-5.80); Red Cell Distribution Width 15.8 % (11.0-16.0); White Blood Count 11.9 X10*3/uL (4.8-10.8)
--- NOTE | 2020-10-08 12:15 | P.CONCA_ITS ---
History of Present Illness History of Present Illness Date of Service: 10/08/20 Requesting physician: Dayday Gandhi Consult reason: atrial fibrillation and shortness of breath Chief complaint: covid + PNA Narrative: Thank you for inviting us in consult on Ad for management of atrial fibrillation as well as shortness of breath. He is a pleasant 75-year-old man who in May was diagnosed with atrial fibrillation, incidentally noted prior to workup for knee surgery. He was started on oral anticoagulant as well as rate control therapy. No discussion about rhythm control to his knowledge. He also did not have any further cardiac testing. Came into the hospital with persistent shortness of breath with recently diagnosed COVID. Has bilateral pulmonary infiltrate consistent with viral/possibly bacterial pneumonia. He is requiring higher flow oxygen, however he says his breathing is improved. He has cough. Denies any clear phlegm production. Also has trouble breathing when he is laying down. Remains in atrial fibrillation with borderline rate control at current time with increasing metoprolol therapy. Currently on oral anticoagulation therapy with Eliquis. He also has bilateral leg edema. His BNP is to was within normal limits. BNP today is slightly elevated. Review of Systems Constitutional: Constitutional: Denies headache(s) and Denies weakness ENT: Denies dizziness and Denies headache(s) Cardiovascular: Cardiovascular: Denies chest pain, Reports leg edema, Denies palpitations, Reports dyspnea and Reports orthopnea Respiratory: Respiratory: Reports cough, Reports pain with cough, Reports dyspnea and Denies wheezing Gastrointestinal: Gastrointestinal: Reports no additional gastrointestinal complaints Musculoskeletal: Musculoskeletal: Denies numbness and Denies tingling Neurologic: Reports system reviewed and no additional complaints, except as documented, Denies dizziness, Denies headache(s), Denies numbness, Denies tingling and Denies weakness Psychiatric: Psychiatric: Reports no additional psychiatric complaints Endocrine: Endocrine: Denies palpitations Allergic/Immunologic: Allergic/Immunologic: Denies wheezing PMFSH Past Medical History Medical History Afib Elevated cholesterol Surgical History Surgical History History of total knee replacement Social History Social History Household Members: Children Housing: House Do you presently have visiting nurse or other home services: No Smoking Status: Never smoker Smoked in Last 30 Days: No Use of substances other than those prescribed or required for medical reasons: No Currently Displaying Signs/Symptoms of Drug Intoxication Withdrawal: No Have you been hit, kicked, punched, or otherwise hurt by someone within the past year? If so, by whom?: No Do you feel safe in your current relationship?: Yes Is there a partner from a previous relationship who is making you feel unsafe now?: No Are you made to feel afraid or neglected: No Advance Directives: No Advance Directives Information Provided: No Do you have thoughts of harming others: None Do you have a plan to hurt others: No Plan Recently lost weight without trying: No service: No Current occupational status: employed Meds Allergies Allergy/AdvReac Type Severity Reaction Status Date / Time No Known Allergies Allergy Verified 10/04/20 11:40 Home Medications Medication Instructions Recorded Confirmed Type apixaban [Eliquis] 1 tab PO BID 10/04/20 10/04/20 History metoprolol succinate 1 tab PO BEDTIME 10/04/20 10/04/20 History simvastatin 1 tab PO DAILY 10/04/20 10/04/20 History Physical Exam Vital Signs: Vital Signs: Last Vital Signs Temp 96.1 F L 10/08/20 08:00 Pulse 81 10/08/20 08:00 Resp 24 H 10/08/20 08:00 BP 132/74 10/08/20 08:00 Pulse Ox 95 10/08/20 08:00 Body Mass Index 32.1 Const: General: cooperative, alert, awake and acute distress mild and respiratory Nutritional Appearance: obese Orientation/consciousness: patient oriented x3 HENMT: Head: Yes normocephalic and Yes atraumatic Eyes: General: appearance normal, both eyes and all related structures Neck: Neck: Yes trachea midline, Yes supple and Yes no JVD Chest: Chest palpation & inspection: normal inspection of the chest Resp: Effort & Inspection: normal respiratory effort Auscultation: no crackles, no rales, no wheezes and diminished lung sounds Cardio: Rhythm: abnormal rhythm irregularly irregular Heart sounds: S1 normal heart sound present and S2 normal heart sound present GI: Auscultation: normal bowel sounds Skin: General skin exam: no rashes or lesions noted Neuro: General: patient oriented x3 and no focal motor deficits Extrem: General: Yes edema ( 2+ lower extremity) Psych: Appearance: grossly normal Results Labs and Meds Result diagrams: 10/08/20 10:22 10/08/20 10:22 Lab results: Laboratory Results - last 24 hr 10/08/20 10/08/20 10/08/20 10:22 10:22 10:22 WBC 11.9 H RBC 5.27 Hgb 14.1 Hct 42.8 MCV 81.2 MCH 26.8 L MCHC 32.9 RDW 15.8 Plt Count 358 D MPV 10.5 Absolute Nucleated RBC 0.000 Nucleated RBC % (auto) 0.0 Sodium 138 Potassium 3.9 Chloride 101 Carbon Dioxide 29 Anion Gap 12 BUN 24 H Creatinine 0.72 Estim Creat Clear Calc 118.7 Estimated GFR > 60 Random Glucose 170 H Calcium 8.8 C-Reactive Protein 5.26 H B-Natriuretic Peptide 115 H Procalcitonin 10/08/20 10:22 WBC RBC Hgb Hct MCV MCH MCHC RDW Plt Count MPV Absolute Nucleated RBC Nucleated RBC % (auto) Sodium Potassium Chloride Carbon Dioxide Anion Gap BUN Creatinine Estim Creat Clear Calc Estimated GFR Random Glucose Calcium C-Reactive Protein B-Natriuretic Peptide Procalcitonin 0.10 EKG Atrial fibrillation with rapid ventricular response with premature ventricular or aberrantly conducted complexes Incomplete right bundle branch block Abnormal ECG No previous ECGs availabl CXR IMPRESSION: Bilateral patchy airspace opacities slightly more confluent/increased from prior study 10/05/2020. No effusion. Assessment and Plan (1) Afib: Status: Acute atrial fibrillation with borderline rate control. Most likely due to underlying pulmonary insufficiency and hypoxia. Continue escalation of therapy with p.o. Lopressor, agree with 50 mg q.6 hours. If rate remains difficult con trol of blood pressure is an issue can not change therapy. Can add Cardizem therapy if blood pressure is adequate. If blood pressure is soft consider digoxin therapy. Echocardiogram on Saturday to evaluate for LV systolic and diastolic function. Continue full oral anticoagulation with Eliquis 5 mg b.i.d.. (2) Hypoxia: Status: Acute Persistent shortness of breath and hypoxia. Superimposed mild congestive heart failure cannot be ruled out. Elevated BNP could suggest the same with bilateral leg edema. Continue gentle diuresis Lasix 20 mg IV daily. Strict intake and output chart needs to be pursued. Continue supportive care for hypoxia with continued oxygen supplementation. Pulmonary consult is on b oard. Continue treatment for underlying pneumonia. (3) Pneumonia: Qualifiers: Laterality: unspecified laterality Lung location: unspecified part of lung Pneumonia type: due to unspecified organism Qualified Code(s): J18.9 - Pneumonia, unspecified organism Status: Acute (4) Elevated brain natriuretic peptide (BNP) level: Status: Acute As above. Will follow if needed. Please consult if there are change in clinical status.
[2020-10-08] MEDS: cefTRIAXone sodium 1 GM in 0.9 % Sodium Chloride 50 ML IV (12:35)
[2020-10-08] MEDS: Metoprolol Tartrate 25 MG TABLET 50 MG PO ×2 (14:44→19:24)
[2020-10-08] MEDS: Furosemide 20 MG/2 ML VIAL IVPUSH (14:45)
--- NOTE | 2020-10-08 14:55 | P.PNIM_ITS ---
Subjective Subjective Date of Service: 10/08/20 Interval History: seen and examined slight improvement in breathing complaining of orthopnea ROS General - no fevers or chills Cardiovascular - no chest pain Respiratory - +SOB/Cough/orthopnea Abdominal- no abdominal pain, nausea, vomiting, diarrhea Physical Exam Vital Signs: Vital Signs: Last Vital Signs Temp 96.1 F L 10/08/20 08:00 Pulse 92 10/08/20 12:00 Resp 24 H 10/08/20 12:00 BP 131/72 10/08/20 12:00 Pulse Ox 92 10/08/20 12:00 Body Mass Index 32.1 Const: Other: General - no acute distress, appears comfortable Cardiovascular - regular rate and rhythm, S1-S2 Lungs - dim, no wheezing Abdomen - soft, nontender, no rebound or guarding Extremities - +edema b/l LE Neuro - awake and alert, no focal deficits Objective Data Current Medications Generic Name Dose Route Start Last Admin Trade Name Freq PRN Reason Stop Dose Admin Acetaminophen 650 mg 10/04/20 18:07 10/08/20 12:36 Acetaminophen 325 Mg Tablet PO 650 mg Q6H PRN Administration Pain, Mild (Pain Scale 1-3) Albuterol Sulfate 2 puff 10/08/20 13:56 Albuterol Sulfate 90 Mcg 8 Gm Inhaler INHALE RQ4H PRN Shortness of Breath/Wheezing Apixaban 5 mg 10/04/20 21:00 10/08/20 09:20 Apixaban 5 Mg Tablet PO 5 mg BID NICOLE Administration Atorvastatin Calcium 10 mg 10/05/20 09:00 10/08/20 09:20 Atorvastatin Calcium 10 Mg Tablet PO 10 mg DAILY NICOLE Administration Dexamethasone 8 mg 10/08/20 09:00 10/08/20 09:20 Dexamethasone 2 Mg Tablet PO 8 mg DAILY NICOLE Administration Furosemide 20 mg 10/08/20 14:15 10/08/20 14:45 Furosemide 20 Mg/2 Ml Vial IVPUSH 20 mg DAILY NICOLE Administration Protocol Ceftriaxone Sodium 1 gm/ 50 mls @ 100 mls/hr 10/07/20 13:00 10/08/20 14:21 Sodium Chloride IV Infused Q24H NICOLE Infusion Doxycycline Hyclate 100 mg/ 250 mls @ 166.67 mls/hr 10/07/20 08:00 10/08/20 11:30 Sodium Chloride IV Infused Q12H NICOLE Infusion Levalbuterol HCl 1.25 mg 10/06/20 20:00 10/08/20 13:31 Levalbuterol Hcl 1.25 Mg/3 Ml Vial.Neb INHALE Not Given RTID NICOLE Metoprolol Tartrate 50 mg 10/08/20 14:04 10/08/20 14:44 Metoprolol Tartrate 25 Mg Tablet PO 50 mg Q6H NICOLE Administration Protocol Ondansetron HCl 4 mg 10/04/20 18:07 Ondansetron Hcl 4 Mg/2 Ml Vial IVPUSH Q8H PRN Nausea and Vomiting Pharmacy Consult 1 each 10/04/20 12:08 Consult Rx Perform Med Rec MISCELLANE ONCE PRN Consult order Sodium Chloride 3 ml 10/04/20 18:07 10/08/20 09:21 0.9 % Sodium Chloride Flush 3 Ml Syringe IVFLUSH 3 ml QSHIFT NICOLE Administration Labs CBC & Chem 7: 10/08/20 10:22 10/08/20 10:22 Microbiology Microbiology Results: Microbiology 10/04/20 11:34 Blood - Venous Blood Culture - Preliminary No growth after 48 hours. 10/04/20 11:34 Blood - Venous Blood Culture - Preliminary No growth after 48 hours. Assessment and Plan (1) COVID-19: Problem details: Patient is maintaining no changes in oxygen He doesntneed Remdesivir Steroids are appriopriate Status: Acute Assessment and Plan: This is a 75 yo M who is admitted for respitartory failure due to probable post- COVID bacterial pneumonia and a. fib with rvr 1. Acute Respiratory failure with hypoxia due to post viral bacterial pneumonia COVID 19 IgG positive continue o2 continue antibiotics day 3 continue decadron day 3 pulmonary input appreciated 2. A. Fib rvr improving rates, but not ideal increase metoprolol to 50mg q6h cardiology consult appreciated 3. ? CHF BNP slight up clinically overloaded IV lasix echo Saturday cardiology consult appreciated Full Code DVT pptx, Rocío offered to give updates to his daughter, declines at this time.
[2020-10-08] MEDS: guaiFENesin 100 MG/5 ML LIQUID 10 ML PO (19:22)
[2020-10-08] MEDS: dilTIAZem HCL 30 MG TABLET PO ×2 (19:23→20:54)
--- NOTE | 2020-10-09 | CT_ITS ---
EXAMINATION: CT ANGIOGRAM OF THE CHEST WITH AND WITHOUT CONTRAST (CT PULMONARY ANGIOGRAM FOR PE) CLINICAL INFORMATION: + COVID IgG. Persistent hypoxia/tachycardia. Concern for pulmonary embolism. COMPARISON: Chest radiograph from 10/07/2020. TECHNIQUE: Prior to contrast administration, noncontrast localization images were obtained. Subsequently, multidetector volumetric imaging was performed from the thoracic inlet to below the diaphragms following the administration of 65 mL Omnipaque 350 intravenous contrast. No contrast reaction reported. Sagittal, coronal, and MIP oblique sagittal reformatted images were obtained on the CT workstation, uploaded to PACS, and reviewed. This CT examination was performed using dose optimization techniques as appropriate, variously including the following: *Automated exposure control *Adjustment of mA and/or kV according to patient size (this includes techniques or standardized protocols for targeted exams where dose is matched to indication/reason for exam; i.e. extremities or head) *Use of iterative reconstruction technique Total exam dose-length product 574 mGy-cm FINDINGS: QUALITY OF STUDY/CONTRAST BOLUS: Satisfactory. PULMONARY ARTERIES: No central or segmental pulmonary emboli. THORACIC AORTA: The thoracic aorta is of normal contour and caliber with moderate calcific atherosclerotic disease. No demonstrated evidence for dissection. LUNGS: Moderate patchy/irregular regions of groundglass opacification throughout the lungs with a slight peripheral predominance. Slightly more consolidated lung parenchyma in the dependent aspects of the right upper lobe, right middle lobe, and superior segment of the right lower lobe. Minimal peribronchial wall thickening. Otherwise, the airways are largely patent. No demonstrated pleural effusion or pneumothorax. Nonspecific minimal pleural calcifications bilaterally. MEDIASTINUM: Mild prominence of the bilateral atria. Otherwise relatively normal cardiac size. Coronary artery calcifications. No additional demonstrated cardiac abnormalities. No pericardial effusion. No hilar or mediastinal lymphadenopathy. No evidence of septal bowing or right heart strain. CHEST WALL/AXILLA: No axillary or internal mammary lymphadenopathy. OSSEOUS STRUCTURES: No acute or suspicious osseous abnormality. Moderate multilevel degenerative arthropathy of the thoracic spine and shoulders. Chronic healed right-sided lateral 3rd-7th rib fractures. UPPER ABDOMEN: There is a 5.3 cm cyst associated with the upper pole of the right kidney. Otherwise, no demonstrated abnormalities on limited evaluation of the upper abdomen. No reflux of contrast into the hepatic veins to suggest elevated right heart pressures. CT/CT angio chest PE protocol IMPRESSION: 1. No evidence of pulmonary embolism. 2. Moderate to extensive patchy/irregular groundglass opacities primarily throughout the periphery of the lungs. Slightly more consolidated lung parenchyma in the dependent aspects of the right upper and midlung. Commonly reported imaging features of COVID-19 pneumonia are present. Other processes such as influenza pneumonia or organizing pneumonia can cause a similar imaging appearance, as can certain drug toxicities and connective tissue disorders. VTE: negative
[2020-10-09 01:00] VITALS: BP 146/94; PULSE 93
[2020-10-09] MEDS: Metoprolol Tartrate 25 MG TABLET 50 MG PO ×4 (01:00→19:46)
--- NOTE | 2020-10-09 01:12 | PC.NURSE ---
PT RESTLESS, COMPLAINING OF INSOMNIA AND JUST OVERALL NOT FEELING WELL. THIS RN OFFERED TO SPEAK WITH THE HOSPITALIST TO OBTAIN SOMETHING TO HELP HIM SLEEP BUT THE PATIENT DECLINED. THIS RN SUGGESTED CHANGING POSITIONS AND SITTING IN THE RECLINER. PT AGREED AND WAS HELPED UP TO THE RECLINER. THIS RN THEN CHANGED THE PATIENTS BEDSHEETS, PROVIDED NEW LINEN AND WARM BLANKETS TO GIVE COMFORT. ENCOURAGED TO RING IF HE CHANGED HIS MIND ABOUT A SLEEP AID. PATIENT RESTING COMFORTABLY IN THE RECLINER, CALL RANDOLPH AT HIS SIDE, WILL CONTINUE TO MONITOR.
[2020-10-09 03:54] VITALS: BP 149/81; PULSE 87; RESP 20; TEMP 37.2; O2SAT 98
[2020-10-09 06:57] LABS: Anion Gap 14 (12-20); Blood Urea Nitrogen 21 mg/dL (9-16); Calcium 8.5 mg/dL (8.4-10.2); Carbon Dioxide 30 mmol/L (22-29); Chloride 99 mmol/L (96-108); Estimated Glomerular Filt Rate > 60; Glucose Random 149 mg/dL (60-115); Potassium 3.8 mmol/l (3.3-5.1); Sodium 139 mmol/L (135-145)
[2020-10-09 07:36] LABS: B Type Natriuretic Peptide 77 pg/mL (<100)
[2020-10-09 08:00] VITALS: BP 157/63; PULSE 110; RESP 22; O2SAT 91
[2020-10-09] MEDS: Furosemide 20 MG/2 ML VIAL IVPUSH (08:49)
[2020-10-09] MEDS: guaiFENesin 100 MG/5 ML LIQUID 10 ML PO (08:49)
[2020-10-09] MEDS: Doxycycline Hyclate 100 MG in 0.9 % Sodium Chloride 250 ML 166.67 MG IV ×2 (08:49→19:45)
[2020-10-09] MEDS: dilTIAZem HCL 30 MG TABLET PO ×4 (08:50→20:46)
[2020-10-09] MEDS: dexAMETHasone 2 MG TABLET 8 MG PO (08:50)
[2020-10-09] MEDS: Acetaminophen 325 MG TABLET 650 MG PO (08:50)
[2020-10-09] MEDS: Apixaban 5 MG TABLET PO ×2 (08:50→20:46)
[2020-10-09] MEDS: 0.9 % Sodium Chloride Flush 3 ML SYRINGE IVFLUSH ×3 (08:51→23:58)
[2020-10-09] MEDS: Atorvastatin Calcium 10 MG TABLET PO (08:51)
--- NOTE | 2020-10-09 10:40 | P.PNIM_ITS ---
Subjective Subjective Date of Service: 10/09/20 Interval History: seen and examined reports improvement but only min still significant sob with min exertion perisistant cough ROS General - no fevers or chills Cardiovascular - no chest pain Respiratory - +SOB/Cough/orthopnea Abdominal- no abdominal pain, nausea, vomiting, diarrhea Physical Exam Vital Signs: Vital Signs: Last Vital Signs Temp 98.9 F 10/09/20 03:54 Pulse 110 H 10/09/20 08:00 Resp 22 H 10/09/20 08:00 BP 157/63 H 10/09/20 08:00 Pulse Ox 91 L 10/09/20 08:00 Body Mass Index 32.1 Const: Other: General - no acute distress, appears comfortable Cardiovascular - IRR, +b/l LE edema Lungs - dim, no wheezing, distress with min exertion Abdomen - soft, nontender, no rebound or guarding Extremities - +edema b/l LE Neuro - awake and alert, no focal deficits Objective Data Current Medications Generic Name Dose Route Start Last Admin Trade Name Freq PRN Reason Stop Dose Admin Acetaminophen 650 mg 10/04/20 18:07 10/09/20 08:50 Acetaminophen 325 Mg Tablet PO 650 mg Q6H PRN Administration Pain, Mild (Pain Scale 1-3) Albuterol Sulfate 2 puff 10/08/20 13:56 Albuterol Sulfate 90 Mcg 8 Gm Inhaler INHALE RQ4H PRN Shortness of Breath/Wheezing Apixaban 5 mg 10/04/20 21:00 10/09/20 08:50 Apixaban 5 Mg Tablet PO 5 mg BID NICOLE Administration Atorvastatin Calcium 10 mg 10/05/20 09:00 10/09/20 08:51 Atorvastatin Calcium 10 Mg Tablet PO 10 mg DAILY NICOLE Administration Diltiazem HCl 30 mg 10/08/20 18:35 10/09/20 08:50 Diltiazem Hcl 30 Mg Tablet PO 30 mg QID NICOLE Administration Protocol Furosemide 20 mg 10/08/20 14:15 10/09/20 08:49 Furosemide 20 Mg/2 Ml Vial IVPUSH 20 mg DAILY NICOLE Administration Protocol Guaifenesin 10 ml 10/08/20 18:24 10/09/20 08:49 Guaifenesin 100 Mg/5 Ml Liquid PO 10 ml Q6H PRN Administration Cough Guaifenesin 600 mg 10/09/20 10:30 Guaifenesin La 600 Mg Tab.Er.12h PO BID NICOLE Ceftriaxone Sodium 1 gm/ 50 mls @ 100 mls/hr 10/07/20 13:00 10/08/20 14:21 Sodium Chloride IV Infused Q24H NICOLE Infusion Doxycycline Hyclate 100 mg/ 250 mls @ 166.67 mls/hr 10/07/20 08:00 10/09/20 08:49 Sodium Chloride IV 166.67 mls/hr Q12H NICOLE Administration Metoprolol Tartrate 50 mg 10/08/20 14:04 10/09/20 08:51 Metoprolol Tartrate 25 Mg Tablet PO 50 mg Q6H NICOLE Administration Protocol Ondansetron HCl 4 mg 10/04/20 18:07 Ondansetron Hcl 4 Mg/2 Ml Vial IVPUSH Q8H PRN Nausea and Vomiting Pharmacy Consult 1 each 10/04/20 12:08 Consult Rx Perform Med Rec MISCELLANE ONCE PRN Consult order Sodium Chloride 3 ml 10/04/20 18:07 10/09/20 08:51 0.9 % Sodium Chloride Flush 3 Ml Syringe IVFLUSH 3 ml QSHIFT NICOLE Administration Labs CBC & Chem 7: 10/08/20 10:22 10/09/20 05:58 Microbiology Microbiology Results: Microbiology 10/04/20 11:34 Blood - Venous Blood Culture - Preliminary No growth after 48 hours. 10/04/20 11:34 Blood - Venous Blood Culture - Preliminary No growth after 48 hours. Assessment and Plan (1) COVID-19: Status: Acute Assessment and Plan: This is a 75 yo M who is admitted for respitartory failure due to probable post- COVID bacterial pneumonia and a. fib with rvr 1. Acute Respiratory failure with hypoxia due to post viral bacterial pneumonia COVID 19 IgG positive continue o2, on 5L continue antibiotics day 4 increase steriods to solu-medrol 60mg bid pulmonary input appreciated -- recs to check CTA 2. A. Fib rvr 90s-100s at rest, but jumps to 120s-140s with min exertion, even eating continue uptitrating his meds -- currently on metoprolol 50mg q6 hours + car dizem 30mq q6 hours continue Eliiquis cardiology input appreciated 3. ? CHF continue with iv lasix 20mg daily, diuresed well last 3 days with lasix -- continue i/o echo tomorrow Full Code DVT pptx, Rocío
[2020-10-09] MEDS: guaiFENesin LA 600 MG TAB.ER.12H PO ×2 (11:23→20:46)
[2020-10-09] MEDS: methylPREDNISolone Sod Succ/PF 125 MG/2 ML VIAL 60 MG IVPUSH ×2 (11:23→22:02)
[2020-10-09 12:00] VITALS: BP 146/73; PULSE 109; RESP 22; TEMP 36.4; O2SAT 96
[2020-10-09] MEDS: cefTRIAXone sodium 1 GM in 0.9 % Sodium Chloride 50 ML IV (13:34)
[2020-10-09 15:42] VITALS: BP 128/83; PULSE 65; RESP 18; TEMP 36.9; O2SAT 97
[2020-10-09] MEDS: iohexoL 350 MG/ML 100 ML INFUS..BTL IV (16:31)
[2020-10-09 19:40] VITALS: BP 129/71; PULSE 88; RESP 18; TEMP 36.4; O2SAT 95
[2020-10-10] VITALS (10 sets, daily range): BP systolic 115–153; BP diastolic 65–99; PULSE 81–96; RESP 18–20; TEMP 36.2–36.6; O2SAT 86–99
[2020-10-10] MEDS: Metoprolol Tartrate 25 MG TABLET 50 MG PO ×4 (01:10→20:02)
[2020-10-10] MEDS: Furosemide 20 MG/2 ML VIAL IVPUSH (08:38)
[2020-10-10] MEDS: 0.9 % Sodium Chloride Flush 3 ML SYRINGE IVFLUSH ×3 (08:39→21:02)
[2020-10-10] MEDS: Doxycycline Hyclate 100 MG in 0.9 % Sodium Chloride 250 ML 166.67 MG IV ×2 (08:39→20:02)
[2020-10-10] MEDS: guaiFENesin LA 600 MG TAB.ER.12H PO ×2 (08:40→21:02)
[2020-10-10] MEDS: Apixaban 5 MG TABLET PO ×2 (08:40→21:02)
[2020-10-10] MEDS: Atorvastatin Calcium 10 MG TABLET PO (08:40)
[2020-10-10] MEDS: dilTIAZem HCL 30 MG TABLET PO ×4 (08:40→21:01)
[2020-10-10] MEDS: cefTRIAXone sodium 1 GM in 0.9 % Sodium Chloride 50 ML IV (12:12)
[2020-10-10] MEDS: methylPREDNISolone Sod Succ/PF 125 MG/2 ML VIAL 60 MG IVPUSH ×2 (12:12→21:41)
--- NOTE | 2020-10-10 12:12 | P.PNIM_ITS ---
Subjective Subjective Date of Service: 10/10/20 Interval History: sob, tired Cardiovascular Cardiovascular: Reports no additional cardiovascular complaints Gastrointestinal Gastrointestinal: Reports no additional gastrointestinal complaints Physical Exam Vital Signs: Vital Signs: Last Vital Signs Temp 97.4 F 10/10/20 11:16 Pulse 89 10/10/20 11:16 Resp 18 10/10/20 11:16 BP 115/65 10/10/20 11:16 Pulse Ox 99 10/10/20 11:16 Body Mass Index 32.1 General: AO X 3, no acute distress Resp: diminished CVS: S1,S2, iregular GI: soft, non tender, non distended Neuro: motor grossly intact Psych: appropriate affect Objective Data Current Medications Generic Name Dose Route Start Last Admin Trade Name Freq PRN Reason Stop Dose Admin Acetaminophen 650 mg 10/04/20 18:07 10/09/20 08:50 Acetaminophen 325 Mg Tablet PO 650 mg Q6H PRN Administration Pain, Mild (Pain Scale 1-3) Albuterol Sulfate 2 puff 10/08/20 13:56 Albuterol Sulfate 90 Mcg 8 Gm Inhaler INHALE RQ4H PRN Shortness of Breath/Wheezing Apixaban 5 mg 10/04/20 21:00 10/10/20 08:40 Apixaban 5 Mg Tablet PO 5 mg BID NICOLE Administration Atorvastatin Calcium 10 mg 10/05/20 09:00 10/10/20 08:40 Atorvastatin Calcium 10 Mg Tablet PO 10 mg DAILY NICOLE Administration Diltiazem HCl 30 mg 10/08/20 18:35 10/10/20 08:40 Diltiazem Hcl 30 Mg Tablet PO 30 mg QID NICOLE Administration Protocol Furosemide 20 mg 10/10/20 09:00 10/10/20 08:38 Furosemide 20 Mg/2 Ml Vial IVPUSH 20 mg DAILY NICOLE Administration Protocol Guaifenesin 10 ml 10/08/20 18:24 10/09/20 08:49 Guaifenesin 100 Mg/5 Ml Liquid PO 10 ml Q6H PRN Administration Cough Guaifenesin 600 mg 10/09/20 10:30 10/10/20 08:40 Guaifenesin La 600 Mg Tab.Er.12h PO 600 mg BID NICOLE Administration Ceftriaxone Sodium 1 gm/ 50 mls @ 100 mls/hr 10/07/20 13:00 10/09/20 14:20 Sodium Chloride IV Infused Q24H NICOLE Infusion Doxycycline Hyclate 100 mg/ 250 mls @ 166.67 mls/hr 10/07/20 08:00 10/10/20 11:00 Sodium Chloride IV Infused Q12H NICOLE Infusion Methylprednisolone Sodium Succinate 60 mg 10/09/20 10:45 10/09/20 22:02 Methylprednisolone Sod Succ/Pf 125 Mg/2 Ml Vial IVPUSH 60 mg Q12H NICOLE Administration Metoprolol Tartrate 50 mg 10/08/20 14:04 10/10/20 08:40 Metoprolol Tartrate 25 Mg Tablet PO 50 mg Q6H NICOLE Administration Protocol Ondansetron HCl 4 mg 10/04/20 18:07 Ondansetron Hcl 4 Mg/2 Ml Vial IVPUSH Q8H PRN Nausea and Vomiting Pharmacy Consult 1 each 10/04/20 12:08 Consult Rx Perform Med Rec MISCELLANE ONCE PRN Consult order Sodium Chloride 3 ml 10/04/20 18:07 10/10/20 08:39 0.9 % Sodium Chloride Flush 3 Ml Syringe IVFLUSH 3 ml QSHIFT NICOLE Administration Labs CBC & Chem 7: 10/08/20 10:22 10/09/20 05:58 Microbiology Microbiology Results: Microbiology 10/04/20 11:34 Blood - Venous Blood Culture - Final No growth after 5 days. 10/04/20 11:34 Blood - Venous Blood Culture - Final No growth after 5 days. Assessment and Plan (1) COVID-19: Status: Acute Assessment and Plan: This is a 75 yo M who is admitted for respitartory failure due to probable post- COVID bacterial pneumonia and a. fib with rvr Acute Respiratory failure with hypoxia due to post viral bacterial pneumonia COVID 19 IgG positive continue to wean o2 continue antibiotics day 5 increase steriods to solu-medrol 60mg bid pulmonary input appreciated -- recs to check CTA - negative for PE 2. A. Fib rvr 90s-100s at rest, but jumps to 120s-140s with min exertion, even eating continue uptitrating his meds -- currently on metoprolol 50mg q6 hours + cardizem 30mq q6 hours continue Eliiquis cardiology input appreciated 3. ? CHF continue with iv lasix 20mg daily, diuresed well last 3 days with lasix -- ranjan nue i/o follow up echo Full Code DVT pptx, Eliquis
[2020-10-11] VITALS (7 sets, daily range): BP systolic 114–142; BP diastolic 67–76; PULSE 76–108; RESP 18–20; TEMP 36.2–37.1; O2SAT 93–96
[2020-10-11] MEDS: Metoprolol Tartrate 25 MG TABLET 50 MG PO ×4 (01:53→20:43)
[2020-10-11 06:44] LABS: Basophils Percent Auto 0.1 % (0-2); Hematocrit 45.9 % (42-52); Imm Gran Abs Auto 0.24 X10*3/uL (0.00-0.03); Imm Gran Pct Auto 1.5 % (0.0-0.4); Lymphocytes Absolute Auto 0.9 X10*3/uL (1.2-4.9); Lymphocytes Percent Auto 5.8 % (20-40); MANUAL DIFF FLAG SCAN; Mean Corpuscular HGB Conc 32.7 g/dl (31.0-36.0); Mean Corpuscular Hemoglobin 26.9 pg (27.0-33.0); Mean Corpuscular Volume 82.4 fL (80-98); Mean Platelet Volume 9.9 fL (9.4-12.4); Monocytes Absolute Auto 0.2 X10*3/uL (0.1-1.2); Monocytes Percent Auto 1.2 % (2-11); Neutrophils Absolute Auto 14.4 X10*3/uL (2.0-8.3); Neutrophils Percent Auto 91.4 % (45-73); Platelet Count 418 X10*3/uL (160-400); Red Blood Count 5.57 X10*6/uL (4.60-5.80); Red Cell Distribution Width 15.9 % (11.0-16.0); SCAN SMEAR FLAG 1; White Blood Count 15.7 X10*3/uL (4.8-10.8)
[2020-10-11 07:14] LABS: Anion Gap 14 (12-20); Blood Urea Nitrogen 23 mg/dL (9-16); Calcium 8.5 mg/dL (8.4-10.2); Carbon Dioxide 28 mmol/L (22-29); Chloride 100 mmol/L (96-108); Creatinine Clr Calc Pharmacy 122.1; Estimated Glomerular Filt Rate > 60; Glucose Fasting 178 mg/dL (60-99); Potassium 4.7 mmol/l (3.3-5.1); Sodium 137 mmol/L (135-145)
[2020-10-11] MEDS: Doxycycline Hyclate 100 MG in 0.9 % Sodium Chloride 250 ML 166.67 MG IV ×2 (08:52→20:43)
[2020-10-11] MEDS: Apixaban 5 MG TABLET PO ×2 (08:52→20:43)
[2020-10-11] MEDS: Atorvastatin Calcium 10 MG TABLET PO (08:52)
[2020-10-11] MEDS: guaiFENesin LA 600 MG TAB.ER.12H PO ×3 (08:52→20:43)
[2020-10-11] MEDS: dilTIAZem HCL 30 MG TABLET PO ×4 (08:52→20:42)
[2020-10-11] MEDS: Furosemide 20 MG/2 ML VIAL IVPUSH (08:52)
[2020-10-11] MEDS: 0.9 % Sodium Chloride Flush 3 ML SYRINGE IVFLUSH ×2 (08:53→12:16)
--- NOTE | 2020-10-11 09:21 | P.CDIC_ITS ---
[facility] Concurrent Query Service Date: 10/11/20 Documentation Clarification: Please clarify if you are treating a proba ble/suspected/likely or confirmed: Chronic diastolic and/or systolic CHF Acute on chronic diastolic and/or systolic CHF Please specify if known Provider Response: Acute Diastolic CHF PLEASE DO NOT DELETE/MODIFY EXISTING CONTENT Additional information is needed in order to code to the highest accuracy and appropriate Severity of Illness (SOI). Please clarify the information noted below in your progress notes and discharge summary. Risk Factors/Clinical Indicators/Treatments PN 10/08 - CHF BNP up slightly, overloaded, Echo Saturday. PN: 10/10 - ? CHF, continue IV Lasix, diuresed well, mildly overloaded. f/u Echo BUN [id number] CDS: Beth Cassidy CCS, [facility] Contact Number: [phone] Please Review the information above and exercise your independent professional judgment in responding to the query. If you concur, pleas document in the PROGRESS NOTES and DISCHARGE SUMMARY. If you do not agree with the query, please document in the query above. THIS QUERY IS PART OF THE PERMANENT MEDICAL RECORD
[2020-10-11 10:50] LABS: SLIDE REVIEW VERIFIED
--- NOTE | 2020-10-11 12:00 | P.PNIM_ITS ---
Subjective Subjective Date of Service: 10/11/20 Interval History: still pretty weak, but slowly improving every day Cardiovascular Cardiovascular: Reports no additional cardiovascular complaints Gastrointestinal Gastrointestinal: Reports no additional gastrointestinal complaints Physical Exam Vital Signs: Vital Signs: Last Vital Signs Temp 97.7 F 10/11/20 11:09 Pulse 80 10/11/20 11:09 Resp 18 10/11/20 11:09 BP 120/73 10/11/20 11:09 Pulse Ox 95 10/11/20 11:09 Body Mass Index 32.1 General: AO X 3, no acute distress, weak appearing Resp: CTA bilateral CVS: S1,S2,RRR GI: soft, non tender, non distended Neuro: motor grossly intact Psych: appropriate affect Objective Data Current Medications Generic Name Dose Route Start Last Admin Trade Name Freq PRN Reason Stop Dose Admin Acetaminophen 650 mg 10/04/20 18:07 10/09/20 08:50 Acetaminophen 325 Mg Tablet PO 650 mg Q6H PRN Administration Pain, Mild (Pain Scale 1-3) Albuterol Sulfate 2 puff 10/08/20 13:56 Albuterol Sulfate 90 Mcg 8 Gm Inhaler INHALE RQ4H PRN Shortness of Breath/Wheezing Apixaban 5 mg 10/04/20 21:00 10/11/20 08:52 Apixaban 5 Mg Tablet PO 5 mg BID NICOLE Administration Atorvastatin Calcium 10 mg 10/05/20 09:00 10/11/20 08:52 Atorvastatin Calcium 10 Mg Tablet PO 10 mg DAILY NICOLE Administration Diltiazem HCl 30 mg 10/08/20 18:35 10/11/20 08:52 Diltiazem Hcl 30 Mg Tablet PO 30 mg QID NICOLE Administration Protocol Furosemide 20 mg 10/10/20 09:00 10/11/20 08:52 Furosemide 20 Mg/2 Ml Vial IVPUSH 20 mg DAILY NICOLE Administration Protocol Guaifenesin 10 ml 10/08/20 18:24 10/09/20 08:49 Guaifenesin 100 Mg/5 Ml Liquid PO 10 ml Q6H PRN Administration Cough Guaifenesin 600 mg 10/09/20 10:30 10/11/20 08:52 Guaifenesin La 600 Mg Tab.Er.12h PO 600 mg BID NICOLE Administration Ceftriaxone Sodium 1 gm/ 50 mls @ 100 mls/hr 10/07/20 13:00 10/10/20 12:49 Sodium Chloride IV Infused Q24H NICOLE Infusion Doxycycline Hyclate 100 mg/ 250 mls @ 166.67 mls/hr 10/07/20 08:00 10/11/20 10:30 Sodium Chloride IV Infused Q12H NICOLE Infusion Methylprednisolone Sodium Succinate 60 mg 10/09/20 10:45 10/10/20 21:41 Methylprednisolone Sod Succ/Pf 125 Mg/2 Ml Vial IVPUSH 60 mg Q12H NICOLE Administration Metoprolol Tartrate 50 mg 10/08/20 14:04 10/11/20 08:51 Metoprolol Tartrate 25 Mg Tablet PO 50 mg Q6H NICOLE Administration Protocol Ondansetron HCl 4 mg 10/04/20 18:07 Ondansetron Hcl 4 Mg/2 Ml Vial IVPUSH Q8H PRN Nausea and Vomiting Pharmacy Consult 1 each 10/04/20 12:08 Consult Rx Perform Med Rec MISCELLANE ONCE PRN Consult order Sodium Chloride 3 ml 10/04/20 18:07 10/11/20 08:53 0.9 % Sodium Chloride Flush 3 Ml Syringe IVFLUSH 3 ml QSHIFT NICOLE Administration Labs CBC & Chem 7: 10/11/20 05:49 10/11/20 05:49 Microbiology Microbiology Results: Microbiology 10/04/20 11:34 Blood - Venous Blood Culture - Final No growth after 5 days. 10/04/20 11:34 Blood - Venous Blood Culture - Final No growth after 5 days. Assessment and Plan (1) COVID-19: Status: Acute Assessment and Plan: This is a 75 yo M who is admitted for respitartory failure due to probable post- COVID bacterial pneumonia and a. fib with rvr Acute Respiratory failure with hypoxia due to post viral bacterial pneumonia COVID 19 IgG positive continue to wean o2 continue antibiotics day 6 solu-medrol 60mg bid pulmonary input appreciated -- recs to check CTA - negative for PE A. Fib rvr 90s-100s at rest, but jumps to 120s-140s with min exertion, even eating continue uptitrating his meds -- currently on metoprolol 50mg q6 hours + cardizem 30mq q6 hours continue Eliiquis cardiology input appreciated acute on chronic diastolic CHF continue with iv lasix 20mg daily, diuresed well last 3 days with lasix -- continue i/o follow up echo Full Code DVT pptx, Eliquis
[2020-10-11] MEDS: methylPREDNISolone Sod Succ/PF 125 MG/2 ML VIAL 60 MG IVPUSH ×2 (12:15→21:25)
[2020-10-11] MEDS: cefTRIAXone sodium 1 GM in 0.9 % Sodium Chloride 50 ML IV (12:16)
[2020-10-12] VITALS (13 sets, daily range): BP systolic 93–147; BP diastolic 58–80; PULSE 63–105; RESP 16–20; TEMP 36.2–37.4; O2SAT 93–97
[2020-10-12] MEDS: 0.9 % Sodium Chloride Flush 3 ML SYRINGE IVFLUSH ×4 (00:20→23:46)
[2020-10-12] MEDS: Metoprolol Tartrate 25 MG TABLET 50 MG PO ×4 (02:33→21:07)
[2020-10-12] MEDS: Doxycycline Hyclate 100 MG in 0.9 % Sodium Chloride 250 ML 166.67 MG IV ×2 (08:13→21:08)
[2020-10-12] MEDS: Furosemide 20 MG/2 ML VIAL IVPUSH (08:14)
[2020-10-12] MEDS: dilTIAZem HCL 30 MG TABLET PO ×4 (08:14→21:07)
[2020-10-12] MEDS: Apixaban 5 MG TABLET PO ×2 (08:14→21:08)
[2020-10-12] MEDS: Atorvastatin Calcium 10 MG TABLET PO (08:14)
[2020-10-12] MEDS: methylPREDNISolone Sod Succ/PF 125 MG/2 ML VIAL 60 MG IVPUSH ×2 (08:14→22:53)
[2020-10-12] MEDS: guaiFENesin LA 600 MG TAB.ER.12H PO ×2 (08:15→21:07)
--- NOTE | 2020-10-12 08:21 | MHC.CM.PN ---
at this time dc plan remains the same , for patient to return home no svcs. pt lives c and daughter. daughter will provide transport at dc. cm to cont. to follow.
--- NOTE | 2020-10-12 12:09 | P.PNIM_ITS ---
Subjective Subjective Date of Service: 10/12/20 Interval History: a bit better, but still sob and weak Cardiovascular Cardiovascular: Reports no additional cardiovascular complaints Gastrointestinal Gastrointestinal: Reports no additional gastrointestinal complaints Physical Exam Vital Signs: Vital Signs: Last Vital Signs Temp 97.1 F 10/12/20 11:04 Pulse 81 10/12/20 11:04 Resp 18 10/12/20 11:04 BP 138/78 10/12/20 11:04 Pulse Ox 95 10/12/20 11:04 Body Mass Index 32.1 General: AO X 3, tired Resp: diminshedl CVS: S1,S2,RRR GI: soft, non tender, non distended Neuro: motor grossly intact Psych: appropriate affect Objective Data Current Medications Generic Name Dose Route Start Last Admin Trade Name Freq PRN Reason Stop Dose Admin Acetaminophen 650 mg 10/04/20 18:07 10/09/20 08:50 Acetaminophen 325 Mg Tablet PO 650 mg Q6H PRN Administration Pain, Mild (Pain Scale 1-3) Albuterol Sulfate 2 puff 10/08/20 13:56 Albuterol Sulfate 90 Mcg 8 Gm Inhaler INHALE RQ4H PRN Shortness of Breath/Wheezing Apixaban 5 mg 10/04/20 21:00 10/12/20 08:14 Apixaban 5 Mg Tablet PO 5 mg BID NICOLE Administration Atorvastatin Calcium 10 mg 10/05/20 09:00 10/12/20 08:14 Atorvastatin Calcium 10 Mg Tablet PO 10 mg DAILY NICOLE Administration Diltiazem HCl 30 mg 10/08/20 18:35 10/12/20 08:14 Diltiazem Hcl 30 Mg Tablet PO 30 mg QID NICOLE Administration Protocol Furosemide 20 mg 10/10/20 09:00 10/12/20 08:14 Furosemide 20 Mg/2 Ml Vial IVPUSH 20 mg DAILY NICOLE Administration Protocol Guaifenesin 10 ml 10/08/20 18:24 10/09/20 08:49 Guaifenesin 100 Mg/5 Ml Liquid PO 10 ml Q6H PRN Administration Cough Guaifenesin 600 mg 10/09/20 10:30 10/12/20 08:15 Guaifenesin La 600 Mg Tab.Er.12h PO 600 mg BID NICOLE Administration Ceftriaxone Sodium 1 gm/ 50 mls @ 100 mls/hr 10/07/20 13:00 10/11/20 15:20 Sodium Chloride IV Infused Q24H NICOLE Infusion Doxycycline Hyclate 100 mg/ 250 mls @ 166.67 mls/hr 10/07/20 08:00 10/12/20 09:55 Sodium Chloride IV Infused Q12H NICOLE Infusion Methylprednisolone Sodium Succinate 60 mg 10/09/20 10:45 10/12/20 08:14 Methylprednisolone Sod Succ/Pf 125 Mg/2 Ml Vial IVPUSH 60 mg Q12H NICOLE Administration Metoprolol Tartrate 50 mg 10/08/20 14:04 10/12/20 08:15 Metoprolol Tartrate 25 Mg Tablet PO 50 mg Q6H NICOLE Administration Protocol Ondansetron HCl 4 mg 10/04/20 18:07 Ondansetron Hcl 4 Mg/2 Ml Vial IVPUSH Q8H PRN Nausea and Vomiting Pharmacy Consult 1 each 10/04/20 12:08 Consult Rx Perform Med Rec MISCELLANE ONCE PRN Consult order Sodium Chloride 3 ml 10/04/20 18:07 10/12/20 08:09 0.9 % Sodium Chloride Flush 3 Ml Syringe IVFLUSH 3 ml QSHIFT NICOLE Administration Labs CBC & Chem 7: 10/11/20 05:49 10/11/20 05:49 Microbiology Microbiology Results: Microbiology 10/04/20 11:34 Blood - Venous Blood Culture - Final No growth after 5 days. 10/04/20 11:34 Blood - Venous Blood Culture - Final No growth after 5 days. Assessment and Plan (1) Hypoxia: Status: Acute (2) Pneumonia: Status: Acute (3) COVID-19: Status: Acute (4) Afib: Status: Acute Assessment and Plan: This is a 75 yo M who is admitted for respitartory failure due to probable post- COVID bacterial pneumonia and a. fib with rvr Acute Respiratory failure with hypoxia due to post viral bacterial pneumonia COVID 19 IgG positive continue to wean o2 continue [id number] day 6 solu-medrol 60mg bid pulmonary input appreciated -- recs to check CTA - negative for PE A. Fib rvr 90s-100s at rest, but jumps to 120s-140s with min exertion, even eating continue uptitrating his meds -- currently on metoprolol 50mg q6 hours + cardizem 30mq q6 hours continue Eliquis cardiology input appreciated acute on chronic diastolic CHF continue with iv lasix 20mg daily, diuresed well last few days with lasix -- will change to po follow up echo Full Code DVT pptx, [place]
[2020-10-12] MEDS: cefTRIAXone sodium 1 GM in 0.9 % Sodium Chloride 50 ML IV (13:47)
--- NOTE | 2020-10-12 13:53 | MHC.CLN ---
F/U PT'S DIET DOWNGRADED BY OPERATIONS DEVELOPER TO CHOPPED PO INTAKE IMPROVED 100% 10/11 FOLLOWING
--- NOTE | 2020-10-12 21:22 | PC.NURSE ---
Addendum entered by Malachi Vincent RN 10/12/20 21:35: Pt verbalizes understanding of interventions to prevent skin breakdown. Original Note: Pt complains of burning in buttock/sacrum area. Pt has redness to this area, possible opening of skin noted. Pt independent with toileting and voiding. Pt pants noted to be soiled. Pt cleaned and assisted with putting on new pants. Barrier cream applied. Pt encouraged to change position, shift weight off of sacrum, and reposition often. Pt generally in upright position to assist with SOB. Extra pillow provided to help remove pressure.
[2020-10-13] VITALS (14 sets, daily range): BP systolic 102–130; BP diastolic 54–71; PULSE 72–100; RESP 16–20; TEMP 36–36.8; O2SAT 90–95
[2020-10-13] MEDS: Metoprolol Tartrate 25 MG TABLET 50 MG PO ×4 (03:06→21:42)
[2020-10-13 06:51] LABS: Basophils Percent Auto 0.1 % (0-2); Hematocrit 47.4 % (42-52); Hemoglobin 15.1 g/dl (14.0-18.0); Imm Gran Abs Auto 0.29 X10*3/uL (0.00-0.03); Imm Gran Pct Auto 1.9 % (0.0-0.4); Lymphocytes Absolute Auto 0.6 X10*3/uL (1.2-4.9); MANUAL DIFF FLAG SCAN; Mean Corpuscular HGB Conc 31.9 g/dl (31.0-36.0); Mean Corpuscular Hemoglobin 26.9 pg (27.0-33.0); Mean Corpuscular Volume 84.5 fL (80-98); Mean Platelet Volume 10.3 fL (9.4-12.4); Monocytes Absolute Auto 0.2 X10*3/uL (0.1-1.2); Monocytes Percent Auto 1.2 % (2-11); Neutrophils Absolute Auto 14.3 X10*3/uL (2.0-8.3); Neutrophils Percent Auto 92.8 % (45-73); Platelet Count 380 X10*3/uL (160-400); Red Blood Count 5.61 X10*6/uL (4.60-5.80); Red Cell Distribution Width 16.3 % (11.0-16.0); SCAN SMEAR FLAG 1; White Blood Count 15.4 X10*3/uL (4.8-10.8)
[2020-10-13] MEDS: Doxycycline Hyclate 100 MG in 0.9 % Sodium Chloride 250 ML IV (07:16)
[2020-10-13] MEDS: Furosemide 20 MG TABLET PO (07:17)
[2020-10-13] MEDS: guaiFENesin LA 600 MG TAB.ER.12H PO ×2 (07:18→21:42)
[2020-10-13] MEDS: dilTIAZem HCL 30 MG TABLET PO ×4 (07:18→21:42)
[2020-10-13] MEDS: Atorvastatin Calcium 10 MG TABLET PO (07:19)
[2020-10-13] MEDS: Apixaban 5 MG TABLET PO ×2 (07:19→21:42)
[2020-10-13] MEDS: 0.9 % Sodium Chloride Flush 3 ML SYRINGE IVFLUSH ×3 (07:19→21:42)
[2020-10-13 07:20] LABS: Anion Gap 13 (12-20); Blood Urea Nitrogen 25 mg/dL (9-16); Calcium 8.3 mg/dL (8.4-10.2); Carbon Dioxide 30 mmol/L (22-29); Chloride 98 mmol/L (96-108); Creatinine Clr Calc Pharmacy 109.5; Estimated Glomerular Filt Rate > 60; Glucose Fasting 181 mg/dL (60-99); Potassium 4.9 mmol/l (3.3-5.1); Sodium 136 mmol/L (135-145)
[2020-10-13 07:59] LABS: SLIDE REVIEW VERIFIED
--- NOTE | 2020-10-13 10:46 | P.PNIM_ITS ---
Subjective Subjective Date of Service: 10/13/20 Interval History: weak, sob on exertion Cardiovascular Cardiovascular: Reports no additional cardiovascular complaints Gastrointestinal Gastrointestinal: Reports no additional gastrointestinal complaints Physical Exam Vital Signs: Vital Signs: Last Vital Signs Temp 97.5 F 10/13/20 07:46 Pulse 76 10/13/20 07:18 Resp 20 10/13/20 07:46 BP 119/64 10/13/20 07:18 Pulse Ox 95 10/13/20 03:23 Body Mass Index 32.1 General: AO X 3, no acute distress Resp: CTA bilateral CVS: S1,S2,RRR GI: soft, non tender, non distended Neuro: motor grossly intact Psych: appropriate affect Objective Data Current Medications Generic Name Dose Route Start Last Admin Trade Name Freq PRN Reason Stop Dose Admin Acetaminophen 650 mg 10/04/20 18:07 10/09/20 08:50 Acetaminophen 325 Mg Tablet PO 650 mg Q6H PRN Administration Pain, Mild (Pain Scale 1-3) Albuterol Sulfate 2 puff 10/08/20 13:56 Albuterol Sulfate 90 Mcg 8 Gm Inhaler INHALE RQ4H PRN Shortness of Breath/Wheezing Apixaban 5 mg 10/04/20 21:00 10/13/20 07:19 Apixaban 5 Mg Tablet PO 5 mg BID NICOLE Administration Atorvastatin Calcium 10 mg 10/05/20 09:00 10/13/20 07:19 Atorvastatin Calcium 10 Mg Tablet PO 10 mg DAILY NICOLE Administration Diltiazem HCl 30 mg 10/08/20 18:35 10/13/20 07:18 Diltiazem Hcl 30 Mg Tablet PO 30 mg QID NICOLE Administration Protocol Furosemide 20 mg 10/13/20 09:00 10/13/20 07:17 Furosemide 20 Mg Tablet PO 20 mg DAILY NICOLE Administration Protocol Guaifenesin 10 ml 10/08/20 18:24 10/09/20 08:49 Guaifenesin 100 Mg/5 Ml Liquid PO 10 ml Q6H PRN Administration Cough Guaifenesin 600 mg 10/09/20 10:30 10/13/20 07:18 Guaifenesin La 600 Mg Tab.Er.12h PO 600 mg BID NICOLE Administration Metoprolol Tartrate 50 mg 10/08/20 14:04 10/13/20 07:17 Metoprolol Tartrate 25 Mg Tablet PO 50 mg Q6H NICOLE Administration Protocol Ondansetron HCl 4 mg 10/04/20 18:07 Ondansetron Hcl 4 Mg/2 Ml Vial IVPUSH Q8H PRN Nausea and Vomiting Pharmacy Consult 1 each 10/04/20 12:08 Consult Rx Perform Med Rec MISCELLANE ONCE PRN Consult order Sodium Chloride 3 ml 10/04/20 18:07 10/13/20 07:19 0.9 % Sodium Chloride Flush 3 Ml Syringe IVFLUSH 3 ml QSHIFT NICOLE Administration Labs CBC & Chem 7: 10/13/20 06:08 10/13/20 06:08 Microbiology Microbiology Results: Microbiology 10/04/20 11:34 Blood - Venous Blood Culture - Final No growth after 5 days. 10/04/20 11:34 Blood - Venous Blood Culture - Final No growth after 5 days. Assessment and Plan (1) Hypoxia: Status: Acute (2) Pneumonia: Status: Acute (3) COVID-19: Status: Acute (4) Afib: Status: Acute Assessment and Plan: This is a 75 yo M who is admitted for respitartory failure due to probable post- COVID bacterial pneumonia and a. fib with rvr Acute Respiratory failure with hypoxia due to post viral bacterial pneumonia COVID 19 IgG positive continue to wean o2 finished antibiotics changed steroids to decadron 6mg po pulmonary input appreciated -- recs to check CTA - negative for PE plan for dc tomorrow after home o2 eval A. Fib rvr rate controlled mostly continue metoprolol 50mg q6 hours + cardizem 30mq q6 hours continue Eliquis cardiology input appreciated acute on chronic diastolic CHF continue lasix 20mg po daily Full Code DVT pptx, [place]
[2020-10-14] VITALS (8 sets, daily range): BP systolic 93–126; BP diastolic 57–71; PULSE 72–111; RESP 18–20; TEMP 36.3–36.7; O2SAT 94–98
[2020-10-14] MEDS: Milk of Magnesia 30 ML ORAL.SUSP PO (00:18)
[2020-10-14] MEDS: polyethylene glycoL 3350 17 GM POWD.PACK PO ×2 (00:18→08:10)
[2020-10-14] MEDS: Metoprolol Tartrate 25 MG TABLET 50 MG PO ×3 (03:17→13:00)
[2020-10-14] MEDS: Atorvastatin Calcium 10 MG TABLET PO (08:09)
[2020-10-14] MEDS: Apixaban 5 MG TABLET PO (08:09)
[2020-10-14] MEDS: dilTIAZem HCL 30 MG TABLET PO ×3 (08:09→16:00)
[2020-10-14] MEDS: Furosemide 20 MG TABLET PO (08:09)
[2020-10-14] MEDS: guaiFENesin LA 600 MG TAB.ER.12H PO (08:09)
[2020-10-14] MEDS: dexAMETHasone 6 MG TABLET PO (08:11)
[2020-10-14] MEDS: 0.9 % Sodium Chloride Flush 3 ML SYRINGE IVFLUSH (08:11)
--- NOTE | 2020-10-14 11:19 | P.DS_ITS ---
DS: Providers Provider Date of admission: 10/04/20 15:52 Primary care physician: Unknown Physician Consults: 10/04/20 18:07 Consult to Infectious Diseases Routine Consulting Provider: Sintia Amaro Reason for consultation: covid 19, hypoxia Has provider been notified: No 10/05/20 09:38 Consult to Pulmonology Routine Consulting Provider: Ritchie Lucio Reason for consultation: Acute hypoxemic respiratory failure /covid Has provider been notified: No 10/08/20 09:49 Consult to Cardiology Routine Consulting Provider: [facility] Reason for consultation: a. fib with rvr DS: Diagnosis Discharge Diagnosis (1) Hypoxia: Status: Acute (2) Pneumonia: Status: Acute (3) COVID-19: Status: Acute (4) Afib: Status: Acute DS: Medications Discharge Medications Home Medications: Home Medications Medication Instructions Recorded Confirmed Eliquis 1 tab PO BID 10/04/20 10/04/20 simvastatin 1 tab PO DAILY 10/04/20 10/04/20 Previous Rx's Medication Instructions Recorded diltiazem HCl [Cardizem CD] 120 mg PO DAILY #30 cap 10/14/20 furosemide 20 mg PO DAILY #30 tab 10/14/20 guaifenesin 200 mg PO Q6H PRN #473 ml 10/14/20 metoprolol tartrate [Lopressor] 100 mg PO BID #60 tab 10/14/20 DS: Summary Hospital Course Hospital Course: Patient was admitted for acute hypoxic respiratory failure secondary to COVID-19 pneumonia with possible superimposed bacterial infection. he was treated with steroids and antibiotics. course was complicated by afib with rvr and chf exacerbation. he was treated with cardizem and increased metoprolol, heart rate became more stable. Is also treated with IV Lasix and transitioned to oral Lasix. Oxygenation significantly improved. He will be discharged home. Time Spent with Patient Time attestation: Total time spent providing and/or coordinating discharge services: Physical Exam Vital Signs: Vital Signs: Last Vital Signs Temp 98.0 F 10/14/20 07:33 Pulse 90 10/14/20 08:09 Resp 20 10/14/20 07:33 BP 126/71 10/14/20 08:09 Pulse Ox 95 10/14/20 07:33 Body Mass Index 32.1 General: AO X 3, no acute distress Resp: CTA bilateral CVS: S1,S2,RRR GI: soft, non tender, non distended Neuro: motor grossly intact Psych: appropriate affect DS: Data Data Completed and Pending Labs on day of discharge: 10/04/20 Add Laboratory Test Stat 10/04/20 10:52 ECG 12 lead EKG Stat EKG Documentation DIRECTED IV insert/maintain .Now XR chest 1V Stat 10/04/20 10:53 Acetaminophen [Tylenol] 650 mg PO ONCE ONE 10/04/20 10:54 0.9 % Sodium Chloride [Ns] 1,000 ml IV 999 mls/hr 10/04/20 11:34 Complete Blood Count Auto Diff Stat Lactic Acid Stat SLIDE REVIEW Stat Troponin-I High Sensitivity Stat Blood Culture X2 [BC] Stat 10/04/20 11:40 cefTRIAXone sodium [Rocephin] 1 gm 0.9 % Sodium Chloride [Ns] 50 ml IV ONCE 10/04/20 11:45 Azithromycin [Zithromax] 500 mg 0.9 % Sodium Chloride [Ns] 250 ml IV ONCE 10/04/20 11:46 cefTRIAXone sodium [Rocephin] 1 gm .ROUTE .STK-MED ONE 10/04/20 12:01 0.9 % Sodium Chloride [Ns] 2,454 ml IV 999 mls/hr 10/04/20 12:16 Azithromycin [Zithromax] 500 mg IV .STK-MED ONE 10/04/20 12:44 Basic Metabolic Panel Stat D Dimer Stat Ferritin Stat Lactate Dehydrogenase Stat Liver Panel Stat Magnesium Stat PT with INR [Prothrombin Time INR] Stat Procalcitonin Stat 10/04/20 15:07 Troponin-I High Sensitivity Stat 10/04/20 15:47 Transfer Order Routine 10/04/20 18:07 dexAMETHasone [Decadron] 6 mg PO DAILY 10/04/20 18:07 IV insert/maintain Q4HR Intake and Output QSHIFTE 10/04/20 18:30 0.9 % Sodium Chloride [Ns] 100 ml dilTIAZem HCL [Cardizem] 125 mg IVCONT Per Protocol mg/hr 10/04/20 Dinner Low Sodium Diet 10/04/20 19:14 dilTIAZem HCL [Cardizem] 125 mg IVCONT .STK-MED ONE 10/04/20 21:00 Metoprolol Succinate ER [Toprol XL] 25 mg PO BEDTIME 10/05/20 XR chest 1V Urgent 10/05/20 05:47 Basic Metabolic Panel DAILY@0600 C Reactive Protein Routine Complete Blood Count Auto Diff DAILY@0600 Ferritin Routine Liver Panel Routine Magnesium Routine SLIDE REVIEW Routine 10/05/20 06:21 guaiFENesin 100 MG/5 ML [Robitussin 100 MG/5 ML] 5 ml PO ONCE ONE 10/05/20 10:38 Add Laboratory Test Urgent 10/05/20 11:00 cefTRIAXone sodium [Rocephin] 1 gm 0.9 % Sodium Chloride [Ns] 50 ml IV Q24H 10/05/20 11:29 ABG (RT) ONCE 10/05/20 11:51 cefTRIAXone sodium [Rocephin] 1 gm .ROUTE .STK-MED ONE 10/05/20 12:00 Azithromycin [Zithromax] 500 mg 0.9 % Sodium Chloride [Ns] 250 ml IV Q24H 10/05/20 12:01 dilTIAZem HCL [Cardizem] 125 mg IVCONT .STK-MED ONE 10/05/20 12:07 dilTIAZem HCL [Cardizem] 125 mg IVCONT .STK-MED ONE 10/05/20 12:22 cefTRIAXone sodium [Rocephin] 1 gm .ROUTE .STK-MED ONE 10/05/20 12:25 Arterial Blood Gas Routine 10/05/20 13:31 Azithromycin [Zithromax] 500 mg IV .STK-MED ONE 10/05/20 15:03 SARS COV2 IgG Stat 10/05/20 15:08 D Dimer Stat 10/05/20 18:16 guaiFENesin 100 MG/5 ML [Robitussin 100 MG/5 ML] 5 ml PO Q6H PRN 10/06/20 05:56 Basic Metabolic Panel DAILY@0600 C Reactive Protein Routine Complete Blood Count no Diff DAILY@0600 10/06/20 06:37 dilTIAZem HCL [Cardizem] 125 mg IVCONT .STK-MED ONE 10/06/20 10:30 Doxycycline Hyclate [Vibramycin] 100 mg 0.9 % Sodium Chloride [Ns] 250 ml IV Q12H 10/06/20 10:45 Doxycycline Hyclate [Vibramycin] 100 mg IV .STK-MED ONE 10/06/20 12:34 cefTRIAXone sodium [Rocephin] 1 gm .ROUTE .STK-MED ONE 10/06/20 16:53 dilTIAZem HCL [Cardizem] 125 mg IVCONT .STK-MED ONE levalbuterol HCL [Xopenex] 1.25 mg INHALE Q3H PRN 10/06/20 20:00 levalbuterol HCL [Xopenex] 1.25 mg INHALE RTID 10/06/20 22:11 Doxycycline Hyclate [Vibramycin] 100 mg IV .STK-MED ONE 10/07/20 05:05 dilTIAZem HCL [Cardizem] 125 mg IVCONT .STK-MED ONE 10/07/20 05:31 B Type Natriuretic Peptide Routine Basic Metabolic Panel DAILY C Reactive Protein Routine Complete Blood Count no Diff DAILY 10/07/20 07:58 XR chest 2V Routine 10/07/20 08:00 Doxycycline Hyclate [Vibramycin] 100 mg 0.9 % Sodium Chloride [Ns] 250 ml IV Q12H 10/07/20 08:28 Add Laboratory Test Routine 10/07/20 09:00 Metoprolol Tartrate [Lopressor] 25 mg PO Q6H Metoprolol Tartrate [Lopressor] 25 mg PO QID 10/07/20 09:13 Doxycycline Hyclate [Vibramycin] 100 mg IV .STK-MED ONE 10/07/20 09:42 Furosemide [Lasix] 40 mg IVPUSH ONCE ONE 10/07/20 13:00 cefTRIAXone sodium [Rocephin] 1 gm 0.9 % Sodium Chloride [Ns] 50 ml IV Q24H 10/07/20 13:03 cefTRIAXone sodium [Rocephin] 1 gm .ROUTE .STK-MED ONE 10/07/20 20:37 Doxycycline Hyclate [Vibramycin] 100 mg IV .STK-MED ONE 10/08/20 00:12 Melatonin 6 mg PO ONCE ONE 10/08/20 09:00 dexAMETHasone [Decadron] 8 mg PO DAILY 10/08/20 09:16 Doxycycline Hyclate [Vibramycin] 100 mg IV .STK-MED ONE 10/08/20 10:00 0.9 % Sodium Chloride [Ns] 100 ml dilTIAZem HCL [Cardizem] 125 mg IVCONT Per Protocol mg/hr 10/08/20 10:22 B Type Natriuretic Peptide Routine Basic Metabolic Panel Routine C Reactive Protein Routine Complete Blood Count no Diff Routine Procalcitonin Routine 10/08/20 12:33 cefTRIAXone sodium [Rocephin] 1 gm .ROUTE .STK-MED ONE 10/08/20 14:15 Furosemide [Lasix] 20 mg IVPUSH DAILY 10/08/20 19:08 Doxycycline Hyclate [Vibramycin] 100 mg IV .STK-MED ONE 10/09/20 CT angio chest PE protocol Urgent 10/09/20 05:58 B Type Natriuretic Peptide Routine Basic Metabolic Panel DAILY@0600 10/09/20 08:37 Doxycycline Hyclate [Vibramycin] 100 mg IV .STK-MED ONE 10/09/20 10:45 methylPREDNISolone Sod Succ/PF [SOLU-MedroL] 60 mg IVPUSH Q12H 10/09/20 12:53 cefTRIAXone sodium [Rocephin] 1 gm .ROUTE .STK-MED ONE 10/09/20 16:31 iohexoL 350 MG/ML [Omnipaque 350 MG/ML] 100 ml IV ONCE ONE 10/09/20 18:00 Furosemide [Lasix] 20 mg IVPUSH BID@0900,1800 10/09/20 19:41 Doxycycline Hyclate [Vibramycin] 100 mg IV .STK-MED ONE 10/10/20 08:28 Doxycycline Hyclate [Vibramycin] 100 mg IV .STK-MED ONE 10/10/20 09:00 Furosemide [Lasix] 20 mg IVPUSH DAILY 10/10/20 12:02 cefTRIAXone sodium [Rocephin] 1 gm .ROUTE .STK-MED ONE 10/10/20 19:52 Doxycycline Hyclate [Vibramycin] 100 mg IV .STK-MED ONE 10/11/20 05:49 BMP [Basic Metabolic Panel Fasting] Routine Complete Blood Count Auto Diff Routine SLIDE REVIEW Routine 10/11/20 08:45 Doxycycline Hyclate [Vibramycin] 100 mg IV .STK-MED ONE 10/11/20 12:12 cefTRIAXone sodium [Rocephin] 1 gm .ROUTE .STK-MED ONE 10/11/20 20:39 Doxycycline Hyclate [Vibramycin] 100 mg IV .STK-MED ONE 10/12/20 08:10 Doxycycline Hyclate [Vibramycin] 100 mg IV .STK-MED ONE 10/12/20 13:44 cefTRIAXone sodium [Rocephin] 1 gm .ROUTE .K-MED ONE 10/12/20 21:03 Doxycycline Hyclate [Vibramycin] 100 mg IV .[facility] ONE 10/13/20 06:08 BMP [Basic Metabolic Panel Fasting] Routine Complete Blood Count Auto Diff Routine SLIDE REVIEW Routine 10/13/20 07:01 Doxycycline Hyclate [Vibramycin] 100 mg IV .[facility] ONE Laboratory Last Values WBC 15.4 X10*3/uL (4.8-10.8) H 10/13/20 06:08 RBC 5.61 X10*6/uL (4.60-5.80) 10/13/20 06:08 Hgb 15.1 g/dl (14.0-18.0) 10/13/20 06:08 Hct 47.4 % (42-52) 10/13/20 06:08 MCV 84.5 fL (80-98) 10/13/20 06:08 MCH 26.9 pg (27.0-33.0) L 10/13/20 06:08 MCHC 31.9 g/dl (31.0-36.0) 10/13/20 06:08 RDW 16.3 % (11.0-16.0) H 10/13/20 06:08 Plt Count 380 X10*3/uL (160-400) 10/13/20 06:08 MPV 10.3 fL (9.4-12.4) 10/13/20 06:08 Immature Gran % (Auto) 1.9 % (0.0-0.4) H 10/13/20 06:08 Neut % (Auto) 92.8 % (45-73) H 10/13/20 06:08 Lymph % (Auto) 4.0 % (20-40) L 10/13/20 06:08 [place] % (Auto) 1.2 % (2-11) L 10/13/20 06:08 Eos % (Auto) 0.0 % (0-4) 10/13/20 06:08 Baso % (Auto) 0.1 % (0-2) 10/13/20 06:08 Lymph # (Auto) 0.6 X10*3/uL (1.2-4.9) L 10/13/20 06:08 [place] # (Auto) 0.2 X10*3/uL (0.1-1.2) 10/13/20 06:08 Eos # (Auto) 0.0 X10*3/uL (0.0-0.4) 10/13/20 06:08 Baso # (Auto) 0.0 X10*3/uL (0.0-0.2) 10/13/20 06:08 Abs Immat Gran (auto) 0.29 X10*3/uL (0.00-0.03) H 10/13/20 06:08 Absolute Neuts (auto) 14.3 X10*3/uL (2.0-8.3) H 10/13/20 06:08 Absolute Nucleated RBC 0.000 X10*3/uL (0.0-0.012) 10/13/20 06:08 Nucleated RBC % (auto) 0.0 /100WBC (0.0-0.2) 10/13/20 06:08 Smear Tech's Comments VERIFIED 10/13/20 06:08 PT 20.7 SEC (10.8-13.0) H 10/04/20 12:44 INR 1.7 (0.9-1.1) H 10/04/20 12:44 D-Dimer 936 NG/ML 10/05/20 15:08 ABG pH 7.45 (7.35-7.45) 10/05/20 12:25 ABG pCO2 35 mmhg (32-45) 10/05/20 12:25 ABG pO2 58 mmhg (83-108) L 10/05/20 12:25 ABG HCO3 24 mmol/l (22-26) 10/05/20 12:25 ABG O2 Saturation 91.6 % 10/05/20 12:25 ABG Base Excess 0.2 10/05/20 12:25 Oxygen Given 6 L 10/05/20 12:25 Sodium 136 mmol/L (135-145) 10/13/20 06:08 Potassium 4.9 mmol/l (3.3-5.1) 10/13/20 06:08 Chloride 98 mmol/L (96-108) 10/13/20 06:08 Carbon Dioxide 30 mmol/L (22-29) H 10/13/20 06:08 Anion Gap 13 (12-20) 10/13/20 06:08 BUN 25 mg/dL (9-16) H 10/13/20 06:08 Creatinine 0.78 mg/dL (0.5-1.4) 10/13/20 06:08 Estim Creat Clear Calc 109.5 10/13/20 06:08 Estimated GFR > 60 10/13/20 06:08 Random Glucose 149 mg/dL (60-115) H 10/09/20 05:58 Fasting Glucose 181 mg/dL (60-99) H 10/13/20 06:08 Lactic Acid 1.5 mmol/L (0.5-2.0) 10/04/20 11:34 Calcium 8.3 mg/dL (8.4-10.2) L 10/13/20 06:08 Magnesium 2.4 mg/dL (1.6-2.6) 10/05/20 05:47 Ferritin 2700 ng/mL (20-250) H 10/05/20 05:47 Total Bilirubin 0.8 mg/dL (0.0-1.0) 10/05/20 05:47 Direct Bilirubin 0.5 mg/dL (0.0-0.5) 10/05/20 05:47 AST 66 U/L (5-37) H 10/05/20 05:47 ALT 58 U/L (0-40) H 10/05/20 05:47 Alkaline Phosphatase 61 U/L (39-117) D 10/05/20 05:47 Lactate Dehydrogenase 417 U/L (118-273) H 10/04/20 12:44 Troponin I High Sens 13.0 ng/L (<3.5-35.0) 10/04/20 15:07 C-Reactive Protein 5.26 mg/dL (< or = 0.50) H 10/08/20 10:22 B-Natriuretic Peptide 77 pg/mL (<100) 10/09/20 05:58 Total Protein 7.1 g/dL (6.5-8.0) 10/05/20 05:47 Albumin 3.8 g/dL (3.5-5.0) 10/05/20 05:47 Procalcitonin 0.10 ng/mL 10/08/20 10:22 SARS-CoV-2 IgG Ab Positive (Negative) 10/05/20 15:03 Discharge Plan Discharge Patient Disposition: Home, Self-Care Referrals: Physician,Unknown [Primary Care Provider] - Discharge Medications: New guaifenesin 100 mg/5 mL Liquid 200 mg PO Q6H PRN (Reason: Cough) Qty: 473 RF: 0 furosemide 20 mg Tablet 20 mg PO DAILY Qty: 30 RF: 0 diltiazem HCl [Cardizem CD] 120 mg capsule,extended release 24hr 120 mg PO DAILY Qty: 30 RF: 0 metoprolol tartrate [Lopressor] 100 mg tablet 100 mg PO BID Qty: 60 RF: 0 Continued simvastatin 20 mg tablet 1 tab PO DAILY RF: 0 Eliquis 5 mg tablet 1 tab PO BID RF: 0 Discontinued metoprolol succinate 25 mg tablet extended release 24 hr 1 tab PO BEDTIME RF: 0 Discharge Orders: Discharge Order (Routine); Ordered 10/14/20 Ordered By: Marc Lott Activity on Discharge: As tolerated Visit Report Forms: Patient Portal Discharge page Care Plan Goals: recovery Health Concerns: covid, afib Plan of Treatment: started cardizem and increased metoprolol
--- NOTE | 2020-10-14 11:35 | MHC.CM.PN ---
IMM 10/14/20 Male Covid+ DC to home, no services. Family will provide transportation.
== END 2020-10-14 05:00 | disposition home or self-care (01) | DRG 177 ==
LOC: HO.ED 15:44 → HO.IMC 17:15
PROVIDERS: Family Medicine; Nurse Practitioner Acute Care; Nurse Practitioner Family; Admitting Provider Internal Medicine; Emergency Provider Emergency Medicine; Visit Provider Internal Medicine
DX: U07.1 COVID-19 (principal); J96.01 Acute respiratory failure with hypoxia; I50.33 Acute on chronic diastolic (congestive) heart failure; J15.9 Unspecified bacterial pneumonia; E78.5 Hyperlipidemia, unspecified; I48.91 Unspecified atrial fibrillation; Z79.01 Long term (current) use of anticoagulants; Z79.899 Other long term (current) drug therapy
CPT/HCPCS: 36415; 36600; 71045; 71046; 71275; 80048; 80076; 82728; 82803; 83605; 83615; 83735; 83880; 84145; 84484; 85025; 85027; 85379; 85610; 86140; 86769; 87040; 92526; 92610; 93005; 94640; 96361; 96374; 96375; 99285; J0456; J0696; J1940; J2930; J8540; Q9967

== ENCOUNTER 2021-06-21 16:27 | Outpatient (REF) | payer OTHER, SELFPAY ==
[2021-06-21 17:58] LABS: Anion Gap 14 (12-20); Blood Urea Nitrogen 15 mg/dL (9-16); Calcium 9.9 mg/dL (8.4-10.2); Carbon Dioxide 28 mmol/L (22-29); Chloride 104 mmol/L (96-108); Estimated Glomerular Filt Rate > 60; Glucose Random 100 mg/dL (60-115); Potassium 4.6 mmol/L (3.3-5.1); Rheumatoid Factor < 15.0 IU/mL (<15.0); Sodium 141 mmol/L (135-145)
[2021-06-21 18:33] LABS: Folate 17.5 ng/mL (> or = 4.0); Vitamin B12 260 pg/mL (200-900)
[2021-06-22 11:47] LABS: Lyme Abs Screen <0.90 index
[2021-06-25 13:35] LABS: Anti Nuclear Antibody Screen NEGATIVE (NEGATIVE)
[2021-06-28 15:26] LABS: IgA <5 mg/dL (70-320); IgG 1759 mg/dL (600-1540); IgM 82 mg/dL (50-300)
== END 2021-06-21 16:28 | disposition home or self-care (01) ==
LOC: HO.LAB 16:27
PROVIDERS: PCP Internal Medicine Pulmonary Disease; Visit Provider Psychiatry & Neurology Neurology
DX: Z01.84 Encounter for antibody response examination (principal); G62.9 Polyneuropathy, unspecified
CPT/HCPCS: 36415; 80048; 82607; 82746; 82784; 86038; 86039; 86334; 86431; 86617; 86618

== ENCOUNTER 2025-02-12 15:15 | Outpatient (AMB) | payer OTHER, SELFPAY ==
--- OUTSIDE RECORDS SUMMARY | 2025-02-12 15:19 | XMS_ITS | Clinical Summary ---
Author Organization [facility] [address] [facility] [address] Address [address] [place] [address] Phone Care Team Providers Care Pediatric Surgeon Name Role Phone PrestonnayaAnna Harley DO Primary Care Pro vider Encounters Date Type Department Care Team Description 12/01/2024 Telephone Gastroenterology - [address] [phone] Mamadou Adam MD from Last 3 Months Social History Tobacco Use Types Packs/Day Years Used Date Smoking Tobacco: Never Assessed Sex and Gender Information Value Date Recorded Sex Assigned at Not on file Legal Sex Male 7:48 AM EST Gender Identity Not on file Sexual Orientation Not on file Plan of Treatment Health Maintenance Due Date Last Done Comments DTaP,Tdap,and Td Vaccines (1 - Tdap) 1964 Pneumococcal Vaccine: 50+ Ye ars (1 of 1 - PCV) 1995 Zoster Vaccines (1 of 2) 1995 RSV Immunization Adult Patie nts (1 - 1-dose 75+ series) 2020 COVID-19 Vaccine ( - 2023-2 5 season) 2024 Cholesterol Screening (Lipid Panel) 12/01/2024 Depression Screening 12/01/2024 Falls Risk Assessment 12/01/2024 Hepatitis C Screening 12/01/2024 Social Influencers of Health Screening 12/01/2024 Influenza Vaccine (Season Ended) 2025 HIB Vaccines Aged Out No longer eligi ble based on patient's age to complete this topic HPV Vaccines Aged Out No longer eligi ble based on patient's age to complete this topic Hepatitis A Vaccines Aged Out No long er eligible based on patient's age to complete this topic Hepatitis B Vaccines Aged Out No long er eligible based on patient's age to complete this topic IPV Vaccines Aged Out No longer eligi ble based on patient's age to complete this topic MMR Vaccines Aged Out No longer eligi ble based on patient's age to complete this topic Meningococcal ACWY Vaccine Aged Out N o longer eligible based on patient's age to complete this topic Meningococcal B Vaccine Aged Out No l onger eligible based on patient's age to complete this topic RSV Immunization Patients Un clementina 20 months Aged Out No longer eligible b ased on patient's age to complete this topic Varicella Vaccines Aged Out No longer eligible based on patient's age to complete this topic Insurance [facility] Care Teams Pediatric Surgeon Relationship Specialty Start Date End Date Anna Sotelo DO [address] [phone] PCP - General Internal Medicine 12/01/24
[2025-02-12 15:46] VITALS: BP 170/88; PULSE 74; O2SAT 97; BMI 38.2
--- NOTE | 2025-02-12 15:46 | MHC.OFFVIS ---
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 Brazing Machine Setter: Brazing Machine Setter offered & declined Accompanied by: Daughter Allergies No Known Allergies Allergy (Verified 02/12/25 15:50) Medication List - Last Reconciled 02/12/25 by Ela Sandoval LPN apixaban (Eliquis) 1 tab PO BID diltiazem HCl CD (Cardizem CD) 120 mg PO DAILY furosemide 20 mg See Protocol PO DAILY guaifenesin 200 mg (10 mL) PO Q6H PRN metoprolol tartrate (Lopressor) 100 mg PO BID simvastatin 1 tab PO DAILY HPI HPI Abnormal chest X-ray: Details: Ad is a pleasant 79-year-old male, former 50 pack year smoker, quit 40 years ago with underlying AFib on anticoagulation and hyperlipidemia. He was referred by PCP for pulmonary evaluation for progressively worsening dyspnea on exertion, occasional dry cough and wheezing. He notes symptoms seem to worsen after having COVID in 2019. He denies prior history of asthma/COPD. He is not on any respiratory medications at this time. Prior chest CT from 2021 revealed pleural plaques and scattered pulmonary nodules less than 5 mm in size. Recent chest x-ray revealed mild prominence of pulmonary vasculature. Last echo from 2021 revealed LVEF of 55-60% with moderate dilation of both atria, he was previously under the care [facility]. 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 He denies any pertinent family history. [facility] Medical History Afib Elevated cholesterol Surgical History History of total knee replacement Social History (Updated 02/12/25 @ 15:54 by Ela Sandoval LPN) Household Members: Children Housing: House Do you presently have visiting nurse or other home services: No Comment: pt asleep Tobacco use type: Cigarette and Cigar Cigarette Packs Per Day: 2 Years Smoked: 25 yr smoker 2ppd cigarettes and 10 cigars per day. service: No Current occupational status: employed Review of Systems Const Denies chills, Denies excessive sweating, Denies fever(s), Denies headache(s) and Denies night sweats Eyes Denies dry eyes, Denies irritation and Denies itchy eyes ENT Reports Normal hearing present, Denies headache(s), Denies nasal congestion, Denies nasal discharge, Denies post nasal drip and Denies sore throat Card Denies chest pain, Denies chest pain at rest, Denies chest pain with activity, Denies claudication, Denies leg edema, Denies orthopnea and Denies paroxysmal nocturnal dyspnea Resp Denies chest congestion, Denies excessive phlegm production, Denies pain on inspiration, Denies pain with cough and Denies stridor Musc Denies myalgias Neuro Reports Normal hearing present and Denies headache(s) Endo Denies excessive sweating Jay/Lymph Denies lymphadenopathy Aller/Immun Denies itchy eyes and Denies seasonal rhinorrhea Physical Exam Vital Signs: Last Vital Signs Pulse 74 02/12/25 15:46 BP 170/88 H 02/12/25 15:46 Pulse Ox 97 02/12/25 15:46 Oxygen Delivery Method Room Air 02/12/25 15:46 BMI result Body Mass Index 38.2 Const General: cooperative, healthy appearing, comfortable, no acute distress, well developed and alert Nutritional Appearance: obese Orientation/consciousness: patient oriented x3 Limitations: no limitations HEENT Head: Yes normal to inspection, Yes normocephalic and Yes atraumatic Ears: hearing grossly normal bilaterally and external ears normal Eyes General: appearance normal, both eyes and all related structures Eyelids: Yes eyelids normal Sclerae: sclerae normal EOM: EOMs intact bilaterally Neck Neck: Yes normal visual inspection and Yes no lymphadenopathy Lymphatic: no lymphadenopathy noted Chest Chest palpation & inspection: normal inspection of the chest Resp Effort & Inspection: normal respiratory effort, able to speak in complete sentences, no audible wheezes, no cough, no stridor, not tachypneic, no tripod positioning and no use of accessory muscles Auscultation: clear to auscultation bilaterally Cardio Jugular venous distension: no JVD Rate: regular rate Rhythm: regular rhythm Skin Other: warm, dry General skin exam: no rashes or lesions noted Neuro General: patient oriented x3 Cranial nerves: Yes Normal hearing present Cognition (Neuro): normal cognition Gait exam (Neuro): Normal gait present Extrem General: Yes normal to inspection, Yes capillary refill normal, Yes no clubbing, cyanosis or edema and Yes no pedal edema Psych Appearance: grossly normal and well kempt Speech and movement: Normal speech and movement present and Clear speech present Affect: normal affect Attitude: cooperative Thought process: Normal thought process present Thought content: Normal thought content present Insight: Good insight present (Psych) Judgement: Good judgement present (Psych) Assessment & Plan Assessment & Plan (1) Dyspnea on exertion: Code(s): R06.09 - Other forms of dyspnea Category: Medical (2) Personal history of tobacco use: Code(s): Z87.891 - Personal history of nicotine dependence Category: Social Hx (3) Pleural plaque due to asbestos exposure: Code(s): J92.0 - Pleural plaque with presence of asbestos Category: Medical (4) Multiple pulmonary nodules: Code(s): R91.8 - Other nonspecific abnormal finding of lung field Category: Medical Plan Ad symptoms are likely related to underlying COPD, given smoking history. Will send for updated PFT to assess for an obstructive defect. Prior PFT from 2021 did not reveal an obstructive defect however did revealed mild restrictive defect with normal DLCO. Prior chest CT from 2021 revealed pleural plaques with known asbestos exposure and PCP has ordered chest CT to be performed on 02/26. There may also be a cardiac component as prior records questioned underlying CHF. If PFT unremarkable then will have patient re-established with cardiology. Will follow-up to review results of PFT and chest CT. All questions were answered and patient is in agreement of plan. Orders: Orders PFT pulmonary function test Today R06.09 - Other forms of dyspnea Coding Level of Care Code New Pt Level 4 (87866) Diagnoses Dyspnea on exertion R06.09 Personal history of tobacco use Z87.891 Pleural plaque due to asbestos exposure J92.0 Multiple pulmonary nodules R91.8
== END 2025-02-12 16:36 | disposition home or self-care (01) ==
LOC: HO.HPSW 15:16
PROVIDERS: PCP Internal Medicine; Referring Provider Internal Medicine; Visit Provider Nurse Practitioner Family
DX: R06.09 Other forms of dyspnea (principal); Z87.891 Personal history of nicotine dependence; J92.0 Pleural plaque with presence of asbestos; R91.8 Other nonspecific abnormal finding of lung field
CPT/HCPCS: 99204

== ENCOUNTER 2025-02-26 16:25 | Outpatient (REF) | payer OTHER, SELFPAY ==
--- NOTE | ~2025-02-26 | CT_ITS ---
CLINICAL HISTORY: ABNORMAL CHEST CT CT chest without contrast Comparison: 10/09/2020 Findings: 8.2 cm (versus 6.1 cm previously) elevation of the right hemidiaphragm. Two left lower lobe (apical segment) benign nodules measuring up to 5 mm versus 4 mm (series 4 images 82 and 84). New 2 mm nodule in the apical segment of the right lower lobe (series 4, image 76) Mildly branching opacity within the posterior inferior aspect of the lingula (series 4 image 121) measuring up to 16 mm in the axial plane that is new from the prior exam possibly due to mucous plugging +/-scarring. Finding could be re-evaluated with a short-term low-dose chest CT in approximately 1 month. Small calcified left upper lung granuloma. Mild right mid/lower lung scarring. Rest of bilateral lung opacities have resolved. Normal heart size. No enlarged mediastinal lymphadenopathy. Bilateral calcified pleural plaques are redemonstrated. Spinal degenerative changes. Deformity of right rib cage as before due to old healed right rib fractures. Distended gallbladder. T benign scattered hepatic hypodensities not significantly changed from prior. A few simple right renal cysts. IMPRESSION: Mildly branching opacity within the posterior inferior aspect of the lingula measuring up to 16 mm in the axial plane that is new from the prior exam possibly due to mucous plugging +/-scarring. Finding could be re-evaluated with a short-term low-dose chest CT in approximately 1 month. Other findings as above. This document has been electronically signed by: Tomasa Saucedo MD on 03/01/2025 10:04:40
--- OUTSIDE RECORDS SUMMARY | 2025-02-26 16:27 | XMS_ITS | Clinical Summary ---
Author Organization [facility] [address] [facility] [address] Address [address] [place] [address] Phone Care Team Providers Care Research Geologist Name Role Phone PrestonnayaAnna Harley DO Primary Care Pro vider Encounters Date Type Department Care Team Description 12/01/2024 Telephone Gastroenterology - [address] [phone] Mamadou Adam MD from Last [...] patient's age to complete this topic Insurance [facility] Care Teams Research Geologist Relationship Specialty Start Date End Date Anna Sotelo DO [address] [phone] PCP - General Internal Medicine 12/01/24
== END 2025-02-26 16:26 | disposition home or self-care (01) ==
LOC: HO.CT 16:25
PROVIDERS: PCP Internal Medicine; Visit Provider Internal Medicine
DX: R93.89 Abnormal findings on diagnostic imaging of other specified body structures (principal)
CPT/HCPCS: 71250

== ENCOUNTER → 2025-02-26 16:28 | Outpatient (BNV) | payer OTHER, SELFPAY | PROVIDERS: PCP Internal Medicine; Visit Provider Radiology Diagnostic Radiology | DX: R91.8 Other nonspecific abnormal finding of lung field (principal) | CPT/HCPCS: 71250 ==

== ENCOUNTER 2025-03-26 15:43 | Outpatient (AMB) | payer OTHER, SELFPAY ==
--- OUTSIDE RECORDS SUMMARY | 2025-03-26 15:44 | XMS_ITS | Clinical Summary ---
Author Organization [facility] 299 [facility] Address [address] [place] [address] Phone Care Team Providers Care Geophysical E Logger Name Role Phone Anna Sotelo DO Primary Care Pro vider Social History Tobacco Use Types Packs/Day Years [...] patient's age to complete this topic Insurance [facility] Care Teams Geophysical E Logger Relationship Specialty Start Date End Date Anna Sotelo DO [facility] [address] [place] [address] [phone] PCP - General Internal Medicine 12/01/24
--- NOTE | 2025-03-26 15:47 | MHC.OFFVIS ---
Vital Signs 03/26/25 15:50 Height 5 ft 11 in Weight 270 lb 2 oz BMI 37.7 BP 170/78 H Blood Pressure Location Rt brachial Position Sitting Pulse 72 Pulse Source Pulse Oximeter Pulse Oximetry (%) 98 Oxygen Delivery Method Room Air Intake Visit Reasons: Abnormal chest X-ray Allergies No Known Allergies Allergy (Verified 03/26/25 15:54) HPI HPI Abnormal chest X-ray: Details: Ad is a pleasant 79-year-old male, former 50 pack year smoker, quit 40 years ago with underlying AFib on anticoagulation and hyperlipidemia. He was initially referred by PCP for pulmonary evaluation for progressively worsening dyspnea on exertion, occasional dry cough and wheezing. He notes symptoms seem to worsen after having COVID in 2019.At this time, he reports cough has resolved and continues with intermittent dyspnea and wheezing. He has upcoming PFT scheduled next week, prior revealed mild obstructive defect. Prior chest CT from 2021 revealed pleural plaques and scattered pulmonary nodules less than 5 mm in size. Today he presents to review chest CT results. Recent chest x-ray revealed mild prominence of pulmonary vasculature. Last echo from 2021 revealed LVEF of 55-60% with moderate dilation of both atria, he was previously under the care [facility]. He has upcoming echo/stress test scheduled. [facility] Medical History Afib Elevated cholesterol Surgical History History of total knee replacement Social History (Updated 03/26/25 @ 15:54 by Alyson Grimaldo CMA) Household Members: Children Housing: House Do you presently have visiting nurse or other home services: No Comment: pt asleep Patient Tobacco Use Status: Former Tobacco user Tobacco use type: Cigarette and Cigar Cigarette Packs Per Day: 2 Years Smoked: 25 yr smoker 2ppd cigarettes and 10 cigars per day. service: No Current occupational status: employed Review of Systems Const Denies chills, Denies excessive sweating, Denies fever(s), Denies headache(s) and Denies night sweats Eyes Denies dry eyes, Denies irritation and Denies itchy eyes ENT Reports Normal hearing present and Denies headache(s) Card Denies chest pain, Denies chest pain at rest, Denies chest pain with activity, Denies claudication, Denies leg edema, Denies orthopnea and Denies paroxysmal nocturnal dyspnea Resp Denies chest congestion, Denies excessive phlegm production, Denies pain on inspiration, Denies pain with cough and Denies stridor Musc Denies myalgias Neuro Reports Normal hearing present and Denies headache(s) Endo Denies excessive sweating Jay/Lymph Denies lymphadenopathy Aller/Immun Denies itchy eyes and Denies seasonal rhinorrhea Physical Exam Vital Signs: Last Vital Signs Pulse 72 03/26/25 15:50 BP 170/78 H 03/26/25 15:50 Pulse Ox 98 03/26/25 15:50 Oxygen Delivery Method Room Air 03/26/25 15:50 BMI result Body Mass Index 37.7 Const General: cooperative, healthy appearing, comfortable, no acute distress, well developed and alert Nutritional Appearance: obese Orientation/consciousness: patient oriented x3 Limitations: no limitations HEENT Head: Yes normal to inspection, Yes normocephalic and Yes atraumatic Ears: hearing grossly normal bilaterally and external ears normal Eyes General: appearance normal, both eyes and all related structures Eyelids: Yes eyelids normal Sclerae: sclerae normal EOM: EOMs intact bilaterally Neck Neck: Yes normal visual inspection and Yes no lymphadenopathy Lymphatic: no lymphadenopathy noted Chest Chest palpation & inspection: normal inspection of the chest Resp Effort & Inspection: normal respiratory effort, able to speak in complete sentences, no audible wheezes, no cough, no stridor, not tachypneic, no tripod positioning and no use of accessory muscles Auscultation: clear to auscultation bilaterally Cardio Jugular venous distension: no JVD Rate: regular rate Rhythm: regular rhythm Skin Other: warm, dry General skin exam: no rashes or lesions noted Neuro General: patient oriented x3 Cranial nerves: Yes Normal hearing present Cognition (Neuro): normal cognition Gait exam (Neuro): Normal gait present Extrem General: Yes normal to inspection, Yes capillary refill normal, Yes no clubbing, cyanosis or edema and Yes no pedal edema Psych Appearance: grossly normal and well kempt Speech and movement: Normal speech and movement present and Clear speech present Affect: normal affect Attitude: cooperative Thought process: Normal thought process present Thought content: Normal thought content present Insight: Good insight present (Psych) Judgement: Good judgement present (Psych) Results Reviewed Results Reviewed: [place] [address] [address] Scan Report Signed Patient: Ad Huizar MR#: [id number] : 1945 Acct:[id number] Age/Sex: 79 / M ADM Date: 02/26/25 Loc: HO.CT Attending Dr: Anna Owen DO Ordering Physician: Anna Silveira DO Date of Service: 02/26/25 Procedure(s): CT chest wo IV con Accession Number(s): [id number] cc: Anna Silveira DO~ Report Number: [id number]: Total DLP = 298.00 mGy-cm CLINICAL HISTORY: ABNORMAL CHEST CT CT chest without contrast Comparison: 10/09/2020 Findings: 8.2 cm (versus 6.1 cm previously) elevation of the right hemidiaphragm. Two left lower lobe (apical segment) benign nodules measuring up to 5 mm versus 4 mm (series 4 images 82 and 84). New 2 mm nodule in the apical segment of the right lower lobe (series 4, image 76) Mildly branching opacity within the posterior inferior aspect of the lingula (series 4 image 121) measuring up to 16 mm in the axial plane that is new from the prior exam possibly due to mucous plugging +/-scarring. Finding could be re-evaluated with a short-term low-dose chest CT in approximately 1 month. Small calcified left upper lung granuloma. Mild right mid/lower lung scarring. Rest of bilateral lung opacities have resolved. Normal heart size. No enlarged mediastinal lymphadenopathy. Bilateral calcified pleural plaques are redemonstrated. Spinal degenerative changes. Deformity of right rib cage as before due to old healed right rib fractures. Distended gallbladder. T benign scattered hepatic hypodensities not significantly changed from prior. A few simple right renal cysts. IMPRESSION: Mildly branching opacity within the posterior inferior aspect of the lingula measuring up to 16 mm in the axial plane that is new from the prior exam possibly due to mucous plugging +/-scarring. Finding could be re-evaluated with a short-term low-dose chest CT in approximately 1 month. Other findings as above. This document has been electronically signed by: Tomasa Saucedo MD on 03/01/2025 10:04:40 Dictated By: Tomasa Saucedo MD Signed By: <Electronically signed by Tomasa Saucedo MD in OV> 03/01/25 1005 DD/ 1004 TD/TT: 03/01/25 1004 [employer] Testing: Assessment & Plan Assessment & Plan (1) Dyspnea on exertion: Code(s): R06.09 - Other forms of dyspnea Category: Medical (2) Personal history of tobacco use: Code(s): Z87.891 - Personal history of nicotine dependence Category: Social Hx (3) Pleural plaque due to asbestos exposure: Code(s): J92.0 - Pleural plaque with presence of asbestos Category: Medical (4) Multiple pulmonary nodules: Code(s): R91.8 - Other nonspecific abnormal finding of lung field Category: Medical (5) Elevated hemidiaphragm: Code(s): J98.6 - Disorders of diaphragm Category: Medical Plan Reviewed chest CT which revealed mildly branching opacity within the posterior inferior aspect of the lingula measuring up to 16 mm in the axial plane that is new from the prior exam possibly due to mucous plugging +/-scarring. Finding could be re-evaluated with a short-term low-dose chest CT in approximately 1 month, will schedule this. There was also note of increased elevation of right hemidiahrgam, 8.2 cm (versus 6.1 cm previously) elevation of the right hemidiaphragm compared to 2020 CT. Will send for SNIFF test. Awaiting results of PFT and patient will consider respiratory medications at that time. All questions were answered and patient is in agreement of plan. Will follow up to review results or sooner if needed. Orders: Orders IR fluoroscopy <1hr Today J98.6 - Disorders of diaphragm CT chest wo IV con 4 Weeks R91.8 - Other nonspecific abnormal finding of lung field Coding Level of Care Code Est Pt Level 4 (80950) Diagnoses Dyspnea on exertion R06.09 Personal history of tobacco use Z87.891 Pleural plaque due to asbestos exposure J92.0 Multiple pulmonary nodules R91.8 Elevated hemidiaphragm J98.6
[2025-03-26 15:50] VITALS: BP 170/78; PULSE 72; O2SAT 98; BMI 37.7
== END 2025-03-26 16:37 | disposition home or self-care (01) ==
LOC: HO.HPSW 15:43
PROVIDERS: PCP Internal Medicine; Visit Provider Nurse Practitioner Family
DX: R06.09 Other forms of dyspnea (principal); Z87.891 Personal history of nicotine dependence; J92.0 Pleural plaque with presence of asbestos; R91.8 Other nonspecific abnormal finding of lung field; J98.6 Disorders of diaphragm
CPT/HCPCS: 99214

== ENCOUNTER → 2025-03-26 15:43 | Outpatient (BNVA) | payer OTHER, SELFPAY | PROVIDERS: PCP Internal Medicine; Visit Provider Nurse Practitioner Family ==

== ENCOUNTER 2025-04-06 14:49 | Outpatient (REF) | payer OTHER, SELFPAY ==
--- NOTE | 2025-04-06 14:52 | PFT_ITS ---
Flows: FEV1: 77 % of predicted at 2.30 L FVC: 73 % of predicted at 2.95 L FEV1/FVC: 78 % Bronchodilator response: Absent Volumes: Total lung capacity: 76 % of predicted at 5.55 L Residual volume: 80 % of predicted at 2.31 L Slow vital capacity: 78 % of predicted at 3.23 L Expiratory reserve volume: 49 % of predicted at 0.64 L Diffusion capacity: Normal Impression: Moderate restrictive ventilatory defect with no bronchodilator response. Decreased expiratory reserve volume suggests extrathoracic restriction likely secondary to abdominal obesity. MTDD
[2025-04-06 15:31] VITALS: PULSE 73; O2SAT 99
--- OUTSIDE RECORDS SUMMARY | 2025-04-06 16:33 | XMS_ITS | Clinical Summary ---
Author Organization [facility] 299 [facility] Address [address] [place] [address] Phone Care Team Providers Care Truck Dispatcher Name Role Phone Anna Sotelo DO Primary [...] patient's age to complete this topic Insurance [facility] Care Teams Truck Dispatcher Relationship Specialty Start Date End Date Anna Sotelo DO [facility] [address] [place] [address] [phone] PCP - General Internal Medicine 12/01/24
== END 2025-04-06 14:50 | disposition home or self-care (01) ==
LOC: HO.RESP 14:49
PROVIDERS: PCP Internal Medicine; Visit Provider Nurse Practitioner Family
DX: R06.09 Other forms of dyspnea (principal)
CPT/HCPCS: 94010; 94640; 94727; 94729

== ENCOUNTER → 2025-04-06 14:52 | Outpatient (BNV) | payer OTHER, SELFPAY | PROVIDERS: PCP Internal Medicine; Visit Provider Internal Medicine Pulmonary Disease | DX: R06.00 Dyspnea, unspecified (principal) | CPT/HCPCS: 94060; 94727; 94729 ==

== ENCOUNTER 2025-05-25 13:03 | Outpatient (REF) | payer OTHER, SELFPAY ==
--- NOTE | ~2025-05-25 | FL_ITS ---
EXAMINATION: XR FLUOROSCOPY, SNIFF TEST CLINICAL INFORMATION: Disorders of diaphragm . COMPARISON: None available. TECHNIQUE: Visualization of the diaphragms was performed under fluoroscopy during normal respiration and during sniffing. FINDINGS: There is paradoxical motion of the right hemidiaphragm, which is significantly elevated, in keeping with right diaphragmatic paralysis/paresis. Normal left hemidiaphragmatic motion was observed. FLUOROSCOPY TIME: 26 seconds 4 Cine runs captured. 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 Electronically signed by: Jaguar Neal MD 05/25/2025 02:45 PM EDT RP
--- OUTSIDE RECORDS SUMMARY | 2025-05-25 14:06 | XMS_ITS | Clinical Summary ---
Author Organization [facility] 299 [facility] Address [address] [place] [address] Phone Care Team Providers Care Hematology Supervisor Name Role Phone Anna Sotelo DO Primary [...] Vaccine ( - 2023-2 5 season) 2024 Depression Screening 11/04/2024 Cholesterol Screening (Lipid Panel) 12/01/2024 Falls Risk Assessment 12/01/2024 Hepatitis C Screening 12/01/2024 Social Influencers of Health Screening 12/01/2024 Influenza Vaccine (#1) 2025 HIB Vaccines Aged Out No longer [...] patient's age to complete this topic Insurance [facility] Care Teams Hematology Supervisor Relationship Specialty Start Date End Date Anna Sotelo DO [facility] [address] [place] [address] [phone] PCP - General Internal Medicine 12/01/24
== END 2025-05-25 13:04 | disposition home or self-care (01) ==
LOC: HO.XRAY 13:03
PROVIDERS: PCP Internal Medicine; Visit Provider Nurse Practitioner Family
DX: J98.6 Disorders of diaphragm (principal)
CPT/HCPCS: 76000

== ENCOUNTER → 2025-05-25 13:15 | Outpatient (BNV) | payer OTHER, SELFPAY | PROVIDERS: PCP Internal Medicine; Visit Provider Radiology Diagnostic Radiology | DX: J98.6 Disorders of diaphragm (principal) | CPT/HCPCS: 76000 ==

== ENCOUNTER 2025-06-09 15:51 | Outpatient (AMB) | payer OTHER, SELFPAY ==
[2025-06-09 15:55] VITALS: BP 164/82; PULSE 80; O2SAT 95; BMI 38.1
--- NOTE | 2025-06-09 15:55 | MHC.OFFVIS ---
Vital Signs 06/09/25 15:55 Height 5 ft 11 in Weight 273 lb BMI 38.1 BP 164/82 H Blood Pressure Location Lt brachial Position Sitting Pulse 80 Pulse Source Pulse Oximeter Pulse Oximetry (%) 95 Oxygen Delivery Method Room Air Intake Visit Reasons: Abnormal chest X-ray Placement Specialist Required: No Hemodialysis Patient Care Specialist: Hemodialysis Patient Care Specialist offered & declined Accompanied by: Family/Other Allergies No Known Allergies Allergy (Verified 06/09/25 15:57) Medication List - Last Reconciled 06/09/25 by Ela Sandoval LPN apixaban (Eliquis) 1 tab PO BID metoprolol tartrate (Lopressor) 100 mg PO BID simvastatin 1 tab PO DAILY HPI HPI Abnormal chest X-ray: Details: Ad is a pleasant 79-year-old male, former 50 pack year smoker, quit 40 years ago with underlying AFib on anticoagulation and hyperlipidemia. He was initially referred by PCP for pulmonary evaluation for progressively worsening dyspnea on exertion, occasional dry cough and wheezing. He notes symptoms seem to worsen after having COVID in 2019. He continues with respiratory symptoms. Prior PFT revealed mild obstructive defect. Prior chest CT from 2021 revealed pleural plaques and scattered pulmonary nodules less than 5 mm in size and Today he presents to review chest CT and PFT results. Recent chest x-ray revealed mild prominence of pulmonary vasculature. Last echo from 2021 revealed LVEF of 55-60% with moderate dilation of both atria, he was previously under the care [facility]. He is awaiting further testing to be scheduled. [facility] Medical History Afib Elevated cholesterol Surgical History History of total knee replacement Social History (Updated 03/26/25 @ 15:54 by Alyson Grimaldo CMA) Household Members: Children Housing: House Do you presently have visiting nurse or other home services: No Comment: pt asleep Patient Tobacco Use Status: Former Tobacco user Tobacco use type: Cigarette and Cigar Cigarette Packs Per Day: 2 Years Smoked: 25 yr smoker 2ppd cigarettes and 10 cigars per day. service: No Current occupational status: employed Review of Systems Const Denies chills, Denies excessive sweating, Denies fever(s), Denies headache(s) and Denies night sweats Eyes Denies dry eyes, Denies irritation and Denies itchy eyes ENT Reports Normal hearing present, Denies headache(s) and Reports post nasal drip Card Denies chest pain, Denies chest pain at rest, Denies chest pain with activity, Denies claudication, Denies leg edema, Reports dyspnea on exertion, Denies orthopnea and Denies paroxysmal nocturnal dyspnea Resp Denies change in phlegm color, Denies chest congestion, Reports cough, Denies excessive phlegm production, Denies pain on inspiration, Denies pain with cough, Reports dyspnea on exertion, Denies stridor and Reports wheezing Musc Denies myalgias Neuro Reports Normal hearing present and Denies headache(s) Endo Denies excessive sweating Jay/Lymph Denies lymphadenopathy Aller/Immun Denies itchy eyes, Denies seasonal rhinorrhea and Reports wheezing Physical Exam Vital Signs: Last Vital Signs Pulse 80 06/09/25 15:55 BP 164/82 H 06/09/25 15:55 Pulse Ox 95 06/09/25 15:55 Oxygen Delivery Method Room Air 06/09/25 15:55 BMI result Body Mass Index 38.1 Const General: cooperative, healthy appearing, comfortable, no acute distress, well developed and alert Nutritional Appearance: obese Orientation/consciousness: patient oriented x3 Limitations: no limitations HEENT Head: Yes normal to inspection, Yes normocephalic and Yes atraumatic Ears: hearing grossly normal bilaterally and external ears normal Eyes General: appearance normal, both eyes and all related structures Eyelids: Yes eyelids normal Sclerae: sclerae normal EOM: EOMs intact bilaterally Neck Neck: Yes normal visual inspection and Yes no lymphadenopathy Lymphatic: no lymphadenopathy noted Chest Chest palpation & inspection: normal inspection of the chest Resp Other: diminished RLL Effort & Inspection: normal respiratory effort, able to speak in complete sentences, no audible wheezes, no cough, no stridor, not tachypneic, no tripod positioning and no use of accessory muscles Auscultation: clear to auscultation bilaterally Cardio Jugular venous distension: no JVD Rate: regular rate Rhythm: regular rhythm Skin Other: warm, dry General skin exam: no rashes or lesions noted Neuro General: patient oriented x3 Cranial nerves: Yes Normal hearing present Cognition (Neuro): normal cognition Gait exam (Neuro): Normal gait present Extrem General: Yes normal to inspection, Yes capillary refill normal, Yes no clubbing, cyanosis or edema and Yes no pedal edema Psych Appearance: grossly normal and well kempt Speech and movement: Normal speech and movement present and Clear speech present Affect: normal affect Attitude: cooperative Thought process: Normal thought process present Thought content: Normal thought content present Insight: Good insight present (Psych) Judgement: Good judgement present (Psych) Assessment & Plan Assessment & Plan (1) Dyspnea on exertion: Code(s): R06.09 - Other forms of dyspnea Category: Medical (2) Personal history of tobacco use: Code(s): Z87.891 - Personal history of nicotine dependence Category: Social Hx (3) Pleural plaque due to asbestos exposure: Code(s): J92.0 - Pleural plaque with presence of asbestos Category: Medical (4) Multiple pulmonary nodules: Code(s): R91.8 - Other nonspecific abnormal finding of lung field Category: Medical (5) Elevated hemidiaphragm: Code(s): J98.6 - Disorders of diaphragm Category: Medical Plan Prior chest CT which revealed mildly branching opacity within the posterior inferior aspect of the lingula measuring up to 16 mm in the axial plane that is new from the prior exam possibly due to mucous plugging +/-scarring. Repeat chest CT revealed resolution of lingula findings. Will repeat in one year to assess stability of pulmonary nodules as well as pleural plaques. 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 Discussed possible thoracic consult to discuss plication surgery however patient deferred at this time. PFT revealed moderate restrictive defect likely related to elevated right hemidiaphragm, with no response to bronchodilators. We did discuss trialing respiratory medications vs nasal spray for post nasal drip however patient declined at this time. Will obtain cardiology records and await further cardiac evaluation as he may have underlying cardiac contribution.All questions were answered and patient is in agreement of plan. Will follow up in 3 months or sooner if needed. Orders: Orders CT chest wo IV con 11 Months J92.0 - Pleural plaque with presence of asbestos, R91.8 - Other nonspecific abnormal finding of lung field Coding Level of Care Code Est Pt Level 4 (36892) Diagnoses Dyspnea on exertion R06.09 Personal history of tobacco use Z87.891 Pleural plaque due to asbestos exposure J92.0 Multiple pulmonary nodules R91.8 Elevated hemidiaphragm J98.6
--- OUTSIDE RECORDS SUMMARY | 2025-06-09 16:14 | XMS_ITS | Clinical Summary ---
Author Organization [facility] 299 [facility] Address [address] [place] [address] Phone Care Team Providers Care Social Human Services Assistants Name Role Phone Anna Sotelo DO Primary [...] patient's age to complete this topic Insurance [facility] Care Teams Social Human Services Assistants Relationship Specialty Start Date End Date Anna Sotelo DO [facility] [address] [place] [address] [phone] PCP - General Internal Medicine 12/01/24
== END 2025-06-09 16:40 | disposition home or self-care (01) ==
LOC: HO.HPSW 15:52
PROVIDERS: PCP Internal Medicine; Visit Provider Nurse Practitioner Family
DX: R06.09 Other forms of dyspnea (principal); Z87.891 Personal history of nicotine dependence; J92.0 Pleural plaque with presence of asbestos; R91.8 Other nonspecific abnormal finding of lung field; J98.6 Disorders of diaphragm
CPT/HCPCS: 99214

== ENCOUNTER 2025-06-10 07:30 | Outpatient (REF) | payer OTHER, SELFPAY ==
--- NOTE | ~2025-06-10 | CT_ITS ---
CLINICAL HISTORY: R91.8 - Other nonspecific abnormal finding of lung field CT chest without contrast Comparison: 02/26/2025 Findings: The heart is normal size. Enlarged right and left main pulmonary arteries measuring up to 33 mm in width as before. Query pulmonary arterial hypertension. The visualized thyroid and mediastinum are unremarkable. Calcified pleural plaques as before for may be seen with asbestos exposure.. Previously noted lingular branching opacity has resolved. Right more than left bibasilar lung scarring and bilateral calcified pleural plaques are redemonstrated. No significant change in a few small lingular and left lower lobe noncalcified nodules measuring up to 3 mm (the largest left lower lobe nodule is seen on series 4, image 76), and small number of scattered lung calcified granulomas. No new lung nodule identified. Redemonstration of elevated right hemidiaphragm. No significant change in scattered too small to characterize hepatic hypodensities. Partially evaluated exophytic right renal cyst (evaluated portion is simple; finding was also present on prior study). Old healed right rib fractures. No acute fracture. No significant change in small superficial subcutaneous cyst in the left paramidline posterior upper chest subcutaneous fat. IMPRESSION: Interval resolution of previously noted lingular opacity. Otherwise no significant change from prior. This document has been electronically signed by: Tomasa Saucedo MD on 06/10/2025 09:36:01
--- OUTSIDE RECORDS SUMMARY | 2025-06-10 07:32 | XMS_ITS | Clinical Summary ---
Author Organization [facility] 299 [facility] Address [address] [place] [address] Phone Care Team Providers Care Emu Farm Worker Name Role Phone Anna Sotelo DO Primary [...] patient's age to complete this topic Insurance [facility] Care Teams Emu Farm Worker Relationship Specialty Start Date End Date Anna Sotelo DO [facility] [address] [place] [address] [phone] PCP - General Internal Medicine 12/01/24
== END 2025-06-10 07:31 | disposition home or self-care (01) ==
LOC: HO.CT 07:30
PROVIDERS: PCP Internal Medicine; Visit Provider Nurse Practitioner Family
DX: R91.8 Other nonspecific abnormal finding of lung field (principal); R93.89 Abnormal findings on diagnostic imaging of other specified body structures
CPT/HCPCS: 71250

== ENCOUNTER → 2025-06-10 07:31 | Outpatient (BNV) | payer OTHER, SELFPAY | PROVIDERS: PCP Internal Medicine; Visit Provider Radiology Diagnostic Radiology | DX: R91.8 Other nonspecific abnormal finding of lung field (principal) | CPT/HCPCS: 71250 ==

== ENCOUNTER 2025-09-10 15:45 | Outpatient (AMB) | payer OTHER, SELFPAY ==
[2025-09-10 15:46] VITALS: BP 128/64; PULSE 82; O2SAT 98; BMI 36.5
--- NOTE | 2025-09-10 15:46 | MHC.OFFVIS ---
Vital Signs 09/10/25 15:46 Height 5 ft 11 in Weight 262 lb BMI 36.5 BP 128/64 Blood Pressure Location Rt brachial Position Sitting Pulse 82 Pulse Source Pulse Oximeter Pulse Oximetry (%) 98 Oxygen Delivery Method Room Air Intake Visit Reasons: Abnormal chest X-ray Allergies No Known Allergies Allergy (Verified 09/10/25 15:50) HPI HPI Abnormal chest X-ray: Details: Ad is a pleasant 80-year-old male, former 50 pack year smoker, quit 40 years ago with underlying AFib on anticoagulation and hyperlipidemia. He was initially referred by PCP for pulmonary evaluation for progressively worsening dyspnea on exertion, occasional dry cough and wheezing. He notes symptoms seem to worsen after having COVID in 2019. He continues with respiratory symptoms including productive cough with clear mucus, and intermittent nasal congestion which he contributes to post nasal drip. Previously recommended trialing nasal sprays however he declined. Prior PFT revealed mild obstructive defect, continues to decline trialing any respiratory medications. He does endorse mild BLE edema, echo from 2021 revealed LVEF of 55-60% with moderate dilation of both atria, he was previously under the care [facility]. He is awaiting further testing to be scheduled, including stress test which he had to postpone as daughter with acute medical issues. Prior chest CT from 2021 revealed pleural plaques and scattered pulmonary nodules less than 5 mm in size, repeat CT 06/2025 continued to demonstrate pulmonary nodueles, largest 3mm with enlarged right and left main pulmonary arteries. Discussed sending for home sleep study however patient declined. [facility] Medical History Afib Elevated cholesterol Surgical History History of total knee replacement Social History Household Members: Children Housing: House Do you presently have visiting nurse or other home services: No Comment: pt asleep Patient Tobacco Use Status: Former Tobacco user Tobacco use type: Cigarette and Cigar Cigarette Packs Per Day: 2 Years Smoked: 25 yr smoker 2ppd cigarettes and 10 cigars per day. service: No Current occupational status: employed Review of Systems Const Denies chills, Denies excessive sweating, Denies fever(s), Denies headache(s) and Denies night sweats Eyes Denies dry eyes, Denies irritation and Denies itchy eyes ENT Reports Normal hearing present, Denies headache(s) and Reports post nasal drip Card Denies chest pain, Denies chest pain at rest, Denies chest pain with activity, Denies claudication, Reports dyspnea on exertion, Denies orthopnea and Denies paroxysmal nocturnal dyspnea Resp Denies change in phlegm color, Denies chest congestion, Reports cough, Denies hemoptysis, Denies excessive phlegm production, Denies pain on inspiration, Denies pain with cough, Reports dyspnea on exertion, Denies stridor and Reports wheezing Musc Denies myalgias Neuro Reports Normal hearing present and Denies headache(s) Endo Denies excessive sweating Jay/Lymph Denies lymphadenopathy Aller/Immun Denies itchy eyes, Denies seasonal rhinorrhea and Reports wheezing Physical Exam Vital Signs: Last Vital Signs Pulse 82 09/10/25 15:46 BP 128/64 09/10/25 15:46 Pulse Ox 98 09/10/25 15:46 Oxygen Delivery Method Room Air 09/10/25 15:46 BMI result Body Mass Index 36.5 Const General: cooperative, healthy appearing, comfortable, no acute distress, well developed and alert Nutritional Appearance: obese Orientation/consciousness: patient oriented x3 Limitations: no limitations HEENT Head: Yes normal to inspection, Yes normocephalic and Yes atraumatic Ears: hearing grossly normal bilaterally and external ears normal Eyes General: appearance normal, both eyes and all related structures Eyelids: Yes eyelids normal Sclerae: sclerae normal EOM: EOMs intact bilaterally Neck Neck: Yes normal visual inspection and Yes no lymphadenopathy Lymphatic: no lymphadenopathy noted Chest Chest palpation & inspection: normal inspection of the chest Resp Other: diminished RLL Effort & Inspection: normal respiratory effort, able to speak in complete sentences, no audible wheezes, no cough, no stridor, not tachypneic, no tripod positioning and no use of accessory muscles Auscultation: clear to auscultation bilaterally Cardio Jugular venous distension: no JVD Rate: regular rate Rhythm: regular rhythm Skin Other: warm, dry General skin exam: no rashes or lesions noted Neuro General: patient oriented x3 Cranial nerves: Yes Normal hearing present Cognition (Neuro): normal cognition Gait exam (Neuro): Normal gait present Extrem Other: 1-2+ pedal edema Psych Appearance: grossly normal and well kempt Speech and movement: Normal speech and movement present and Clear speech present Affect: normal affect Attitude: cooperative Thought process: Normal thought process present Thought content: Normal thought content present Insight: Good insight present (Psych) Judgement: Good judgement present (Psych) Assessment & Plan Assessment & Plan (1) Dyspnea on exertion: Code(s): R06.09 - Other forms of dyspnea Category: Medical (2) Personal history of tobacco use: Code(s): Z87.891 - Personal history of nicotine dependence Category: Social Hx (3) Pleural plaque due to asbestos exposure: Code(s): J92.0 - Pleural plaque with presence of asbestos Category: Medical (4) Multiple pulmonary nodules: Code(s): R91.8 - Other nonspecific abnormal finding of lung field Category: Medical (5) Elevated hemidiaphragm: Code(s): 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 We again discussed trialing respiratory medications vs nasal spray for post nasal drip agreeable to nasal spray. Findings of moderate restrictive defect on PFT likely related to elevation of hemidiaphragm. Discussed thoracic referral, patient not interested at this time. Patient with dyspnea and BLE edema, prior echo suggestive of diastolic dysfuntion, will trial lasix x 3 days to assess for any improvements which he was agreeable to. He will call the office to review any improvements with lasix and decide on further treatment/follow up at that time. Encouraged patient to reach out to cardiology to reschedule stress test. All questions were answered and patient is in agreement of plan. Medications: New ipratropium bromide administer into each nostril 2 sprays intranasal .qhs 30 mL 3RF furosemide (Lasix) 20 mg PO DAILY 3 tabs 0RF Coding Level of Care Code Est Pt Level 4 (05539) Diagnoses Dyspnea on exertion R06.09 Personal history of tobacco use Z87.891 Pleural plaque due to asbestos exposure J92.0 Multiple pulmonary nodules R91.8 Elevated hemidiaphragm J98.6
== END 2025-09-10 16:18 | disposition home or self-care (01) ==
PROVIDERS: PCP Internal Medicine; Visit Provider Nurse Practitioner Family
DX: R06.09 Other forms of dyspnea (principal); Z87.891 Personal history of nicotine dependence; J92.0 Pleural plaque with presence of asbestos; R91.8 Other nonspecific abnormal finding of lung field; J98.6 Disorders of diaphragm
CPT/HCPCS: 99214

== ENCOUNTER 2025-10-08 10:45 | Outpatient (AMB) | payer OTHER, SELFPAY ==
[2025-10-08 10:47] VITALS: BP 139/61; PULSE 92; BMI 36.8
--- NOTE | 2025-10-08 10:47 | A.OFFVIS_ITS ---
Vital Signs 3 10/08/25 10:47 Height 5 ft 11 in Weight 264 lb BMI 36.8 BP 139/61 Blood Pressure Location Rt brachial Position Sitting Pulse 92 Intake Visit Reasons: cyst on back Intake Note: Patient referred by PCP Dr. Moore for evaluation of cyst on back. First noticed in July. Patient c/o: itchy, skin discolored. Looks better now. Director Of Professional Services Required: No Accompanied by: daughter Jacqueline Allergies No Known Allergies Allergy (Verified 10/08/25 10:55) Medication List - Last Reconciled 10/08/25 by Severo Suresh MD apixaban (Eliquis) 1 tab PO BID ascorbate calcium (vitamin C) 500 mg PO DAILY ipratropium bromide 2 sprays intranasal .qhs metoprolol tartrate (Lopressor) 100 mg PO BID simvastatin 1 tab PO DAILY HPI Comments Details: Patient reports a several week history of a painful back cyst. He took antibiotics for it and resolved spontaneously without drainage. He goes on to say that his only residual effect is that it itches . He denies any fevers chills nausea or vomiting. He denies any history of trauma or instrumentation to the area. He Does take apixaban. PFS Medical History (Updated 10/08/25 @ 11:13 by Severo Suresh MD) Elevated cholesterol Afib Surgical History (Updated 10/08/25 @ 10:56 by TYRA Valdez) Hx of neck surgery History of back surgery History of total knee replacement Social History Household Members: Children Housing: House Do you presently have visiting nurse or other home services: No Comment: pt asleep Patient Tobacco Use Status: Former Tobacco user Tobacco use type: Cigarette and Cigar Cigarette Packs Per Day: 2 Years Smoked: 25 yr smoker 2ppd cigarettes and 10 cigars per day. service: No Current occupational status: employed Review of Systems Const All systems reviewed & are unremarkable except as noted in HPI and below Physical Exam Vital Signs: Last Vital Signs Pulse 92 10/08/25 10:47 BP 139/61 10/08/25 10:47 BMI result Body Mass Index 36.8 Const General: cooperative, healthy appearing and comfortable Orientation/consciousness: oriented to person, oriented to place and oriented to time HEENT Head: Yes normal to inspection Eyes Pupils: Equal, round and reactive pupils present EOM: EOMs intact bilaterally Neck Neck: Yes normal visual inspection Chest Chest palpation & inspection: normal inspection of the chest Resp Effort & Inspection: normal respiratory effort and able to speak in complete sentences Cardio Rate: regular rate Rhythm: regular rhythm GI Inspection: Yes normal to inspection Back/Spine/Pelvis Back/spine/pelvis image: 2 1. approximate 7 cm x 8 cm area of discoloration that it is . No erythema edema or discharge or central comedo. Neuro General: oriented to person, oriented to place and oriented to time Cranial nerves: Yes Equal, round and reactive pupils present Assessment & Plan Assessment & Plan (1) Sebaceous cyst: Code(s): L72.3 - Sebaceous cyst Category: Medical Plan: I told the patient it appeared that his infectious issue had resolved spontaneously however it added that it may return. I added also that I could not excise what was not there and did not feel it was appropriate to completely remove all of the infected area which would be about the size of a softball. He and his daughter agreed. They also agreed to come back and see us again in approximately 3 months for a recheck. They will contact us should there be any change or should they have any questions or problems. Coding Level of Care Code New Pt Level 3 (31889) Diagnoses Sebaceous cyst L72.3 Time Spent (min) 30 Comment Patient visit, record review and coordination of care time
--- OUTSIDE RECORDS SUMMARY | 2025-10-08 12:57 | XMS_ITS | Clinical Summary ---
Author Organization [facility] [address] [facility] Address [address] [place] [address] Phone Care Team Providers Care Professional Nursing Tutor Name Role Phone Anna Sotelo DO Primary [...] nts (1 - 1-dose 75+ series) 2020 Depression Screening 11/04/2024 Cholesterol Screening (Lipid Panel) 12/01/2024 Falls Risk Assessment 12/01/2024 Social Influencers of Health Screening 12/01/2024 COVID-19 Vaccine ( - 2024-2 6 season) 2025 Influenza Vaccine (#1) 2025 HIB Vaccines Aged [...] patient's age to complete this topic Insurance [facility] Care Teams Professional Nursing Tutor Relationship Specialty Start Date End Date Anna Sotelo DO [facility] [address] [place] [phone] PCP - General Internal Medicine 12/01/24
== END 2025-10-08 11:04 | disposition home or self-care (01) ==
LOC: HO.HGS 10:46
PROVIDERS: PCP Internal Medicine; Visit Provider Surgery
DX: L72.3 Sebaceous cyst (principal)
CPT/HCPCS: 99203